=== PATIENT | male | born 1960 | race Asian ===

== ENCOUNTER 2017-04-26 17:35 | Inpatient (IN) | payer OTHER ==
[~2017-04-26] VITALS: Ht 177.8 cm; Wt 69.4 kg
[2017-04-26 17:55] VITALS: BP 160/78
[2017-04-26] MEDS ORDERED: DOCUSATE SODIUM 283 MG/5 ML MINI-ENEMA PR PRN (19:15)
[2017-04-26] MEDS ORDERED: DEXTROSE 50%-WATER 25 GM/50 ML SYRINGE IVP PRN (19:30)
[2017-04-26] MEDS: DOCUSATE SODIUM 100 MG CAPSULE PO SCH (21:00)
[2017-04-26] MEDS: SENNA 187 MG TABLET PO SCH (21:00)
[2017-04-26] MEDS ORDERED: ATORVASTATIN CALCIUM 40 MG TABLET PO SCH (21:00)
[2017-04-26] MEDS ORDERED: INSULIN DETEMIR 100 UNITS/ML SQ SCH (21:00)
[2017-04-26] MEDS: INSULIN ASPART 100 UNITS/ML SQ PRN (22:07)
[2017-04-26 22:17] LABS: GLUCOSE COMMENT 1 Received Meds; GLUCOSE,POINT OF CARE 324 MG/DL (70-110)
[2017-04-26 22:57] LABS: APPEARANCE,URINE CLEAR (CLEAR); GLUCOSE, URINE (UA) 250 mg/dL (NEGATIVE); KETONES,URINE NEGATIVE (NEGATIVE); LEUKOCYTE ESTERASE ,URINE NEGATIVE (NEGATIVE); OCCULT BLOOD,URINE SMALL (NEGATIVE); PROTEIN,URINE SEE CONFIRM (NEGATIVE)
[2017-04-26 23:14] LABS: SULFOSALICYLIC ACID,URINE 3+ (Negative)
[2017-04-26 23:16] LABS: COARSE GRANULAR CASTS,URINE 0-2 /LPF (None Seen)
[2017-04-26 23:17] LABS: HYALINE CASTS, URINE 0-2 /LPF (None Seen)
[2017-04-26 23:19] LABS: SQUAMOUS EPITHELIAL CELL,UR Rare /LPF (None Seen)
[2017-04-27 00:36] VITALS: BP 146/87
[2017-04-27 06:12] LABS: GLUCOSE,POINT OF CARE 342 MG/DL (70-110)
[2017-04-27] MEDS ORDERED: MetFORMIN HCL 500 MG TABLET PO SCH (07:30)
[2017-04-27 07:39] LABS: BASOPHILS % (AUTO) 0.9 % (0.0-2.0); EOSINOPHILS % (AUTO) 3.5 % (1.0-6.0); HEMATOCRIT 36.5 % (41-53); HEMOGLOBIN 11.8 g/dL (13.5-17.5); LYMPHOCYTES # (AUTO) 1.9 K/uL (1.0-4.8); LYMPHOCYTES % (AUTO) 29.3 % (22.0-44.0); MEAN CORPUSCULAR HGB CONC 32.4 G/dL (31.0-37.0); MEAN CORPUSCULAR VOLUME 90 fL (80-100); MONOCYTES # (AUTO) 0.6 K/uL (0.1-1.0); MONOCYTES % (AUTO) 9.2 % (2.0-9.0); NEUTROPHILS # (AUTO) 3.7 K/uL (1.8-7.7); NEUTROPHILS % (AUTO) 57.1 % (40.0-70.0); PLATELET COUNT (AUTO) 243 K/uL (150-450); RED BLOOD CELL COUNT(AUTO) 4.06 MIL/uL (4.50-5.90); RED CELL DISTRIBUTION WIDTH 13.9 % (11.5-14.5); WHITE BLOOD COUNT (AUTO) 6.4 K/uL (4.5-11.0)
[2017-04-27 07:45] VITALS: BP 163/84
[2017-04-27 07:50] LABS: ALBUMIN 1.5 g/dL (3.4-5.0); BILIRUBIN,TOTAL 0.1 mg/dL (0.1-1.0); CALCIUM, TOTAL 7.7 mg/dL (8.8-10.5); CREATININE 1.38 mg/dL (0.60-1.30); POTASSIUM 4.1 mmol/L (3.5-5.1); TOTAL PROTEIN, SERUM 4.6 g/dL (6.4-8.2)
[2017-04-27] MEDS: INSULIN ASPART 100 UNITS/ML SQ PRN ×3 (08:11→21:17)
[2017-04-27] MEDS: MetFORMIN HCL 500 MG TABLET PO SCH ×2 (08:20→17:41)
[2017-04-27] MEDS: DOCUSATE SODIUM 100 MG CAPSULE PO SCH ×2 (08:21→20:57)
[2017-04-27] MEDS: LOSARTAN POTASSIUM 50 MG TABLET PO SCH (08:21)
[2017-04-27] MEDS: ASPIRIN 81 MG CHEWABLE TABLET PO SCH (08:21)
[2017-04-27] MEDS: SitaGLIPtin PHOSPHATE 50 MG TABLET PO SCH ×2 (08:22→20:56)
[2017-04-27] MEDS: CLOPIDOGREL BISULFATE 75 MG TABLET PO SCH (08:22)
[2017-04-27] MEDS: TERAZOSIN HCL 1 MG CAPSULE PO SCH (08:23)
[2017-04-27] MEDS: ACETAMINOPHEN 325 MG TABLET PO PRN (11:02)
[2017-04-27] MEDS ORDERED: CloNIDine HCL 0.1 MG TABLET PO PRN (11:15)
[2017-04-27 12:00] VITALS: BP 125/53
[2017-04-27 13:12] LABS: GLUCOSE,POINT OF CARE 158 MG/DL (70-110)
[2017-04-27 15:06] VITALS: BP 151/77
[2017-04-27 20:50] VITALS: BP 151/72
[2017-04-27] MEDS: SENNA 187 MG TABLET PO SCH (20:56)
[2017-04-27] MEDS: ATORVASTATIN CALCIUM 40 MG TABLET PO SCH (20:57)
[2017-04-27] MEDS: CARVEDILOL 6.25 MG TABLET PO SCH (20:57)
[2017-04-27 20:58] LABS: GLUCOSE COMMENT 1 Received Meds; GLUCOSE,POINT OF CARE 257 MG/DL (70-110)
[2017-04-27] MEDS: HEPARIN SODIUM,PORCINE 5,000 UNITS/ML VIAL SQ SCH (21:00)
[2017-04-27] MEDS: INSULIN DETEMIR 100 UNITS/ML SQ SCH (21:10)
[2017-04-27 21:37] LABS: GLUCOSE COMMENT 1 Received Meds; GLUCOSE,POINT OF CARE 244 MG/DL (70-110)
[2017-04-28 03:00] VITALS: BP 130/66
[2017-04-28 07:16] LABS: GLUCOSE,POINT OF CARE 91 MG/DL (70-110)
[2017-04-28 07:21] LABS: GLUCOSE,POINT OF CARE 137 MG/DL (70-110)
[2017-04-28 07:50] VITALS: BP 142/69
[2017-04-28] MEDS: DOCUSATE SODIUM 100 MG CAPSULE PO SCH (08:23)
[2017-04-28] MEDS: LOSARTAN POTASSIUM 50 MG TABLET PO SCH (08:24)
[2017-04-28] MEDS: CARVEDILOL 6.25 MG TABLET PO SCH ×2 (08:24→21:03)
[2017-04-28] MEDS: ASPIRIN 81 MG CHEWABLE TABLET PO SCH (08:24)
[2017-04-28] MEDS: CLOPIDOGREL BISULFATE 75 MG TABLET PO SCH (08:24)
[2017-04-28] MEDS: SitaGLIPtin PHOSPHATE 50 MG TABLET PO SCH ×2 (08:24→21:03)
[2017-04-28] MEDS: TERAZOSIN HCL 1 MG CAPSULE PO SCH (08:24)
[2017-04-28] MEDS: MetFORMIN HCL 500 MG TABLET PO SCH ×2 (08:24→17:28)
[2017-04-28] MEDS: HEPARIN SODIUM,PORCINE 5,000 UNITS/ML VIAL SQ SCH ×2 (08:25→20:56)
[2017-04-28] MEDS: ACETAMINOPHEN 325 MG TABLET PO PRN (11:02)
[2017-04-28 12:17] LABS: GLUCOSE COMMENT 1 Received Meds; GLUCOSE,POINT OF CARE 198 MG/DL (70-110)
[2017-04-28] MEDS: INSULIN ASPART 100 UNITS/ML SQ PRN ×2 (12:30→20:59)
[2017-04-28] MEDS ORDERED: ATOR40TA28 PO (14:25)
[2017-04-28] MEDS ORDERED: INSNOV SQ (14:25)
[2017-04-28] MEDS ORDERED: ASPI81 PO (14:25)
[2017-04-28] MEDS ORDERED: SITA50 PO (14:25)
[2017-04-28] MEDS ORDERED: LOSA25TA21 PO (14:25)
[2017-04-28] MEDS ORDERED: INSLAN SQ (14:25)
[2017-04-28] MEDS ORDERED: TERA1 PO (14:25)
[2017-04-28 16:10] VITALS: BP 144/79
[2017-04-28 17:57] LABS: GLUCOSE,POINT OF CARE 164 MG/DL (70-110)
[2017-04-28] MEDS: SENNA 187 MG TABLET PO SCH (20:56)
[2017-04-28] MEDS: ATORVASTATIN CALCIUM 40 MG TABLET PO SCH (20:56)
[2017-04-28] MEDS: DOCUSATE SODIUM 250 MG CAPSULE PO SCH (20:56)
[2017-04-28] MEDS: INSULIN DETEMIR 100 UNITS/ML SQ SCH (21:01)
[2017-04-28 21:05] VITALS: BP 139/84
[2017-04-28 21:42] LABS: GLUCOSE,POINT OF CARE 259 MG/DL (70-110)
[2017-04-29] VITALS (7 sets, daily range): BP systolic 134–160; BP diastolic 62–84
[2017-04-29 06:06] LABS: GLUCOSE,POINT OF CARE 82 MG/DL (70-110)
[2017-04-29] MEDS: TERAZOSIN HCL 1 MG CAPSULE PO SCH (08:33)
[2017-04-29] MEDS: CARVEDILOL 6.25 MG TABLET PO SCH ×2 (08:34→20:40)
[2017-04-29] MEDS: LOSARTAN POTASSIUM 50 MG TABLET PO SCH (08:34)
[2017-04-29] MEDS: CLOPIDOGREL BISULFATE 75 MG TABLET PO SCH (08:34)
[2017-04-29] MEDS: DOCUSATE SODIUM 250 MG CAPSULE PO SCH ×2 (08:34→20:40)
[2017-04-29] MEDS: MetFORMIN HCL 500 MG TABLET PO SCH ×2 (08:34→17:35)
[2017-04-29] MEDS: ASPIRIN 81 MG CHEWABLE TABLET PO SCH (08:34)
[2017-04-29] MEDS: SitaGLIPtin PHOSPHATE 50 MG TABLET PO SCH ×2 (08:34→20:40)
[2017-04-29] MEDS: HEPARIN SODIUM,PORCINE 5,000 UNITS/ML VIAL SQ SCH ×2 (08:35→20:40)
[2017-04-29 11:37] LABS: GLUCOSE,POINT OF CARE 128 MG/DL (70-110)
[2017-04-29] MEDS: INSULIN ASPART 100 UNITS/ML SQ PRN ×3 (11:48→20:45)
[2017-04-29] MEDS: SENNA 187 MG TABLET PO SCH (20:40)
[2017-04-29] MEDS: ATORVASTATIN CALCIUM 40 MG TABLET PO SCH (20:40)
[2017-04-29] MEDS: INSULIN DETEMIR 100 UNITS/ML SQ SCH (20:44)
[2017-04-29 21:37] LABS: GLUCOSE COMMENT 1 Received Meds; GLUCOSE,POINT OF CARE 168 MG/DL (70-110)
[2017-04-29 21:37] LABS: GLUCOSE COMMENT 1 Received Meds; GLUCOSE,POINT OF CARE 203 MG/DL (70-110)
[2017-04-30 05:57] LABS: GLUCOSE,POINT OF CARE 73 MG/DL (70-110)
[2017-04-30 07:23] VITALS: BP 149/63
[2017-04-30] MEDS: MetFORMIN HCL 500 MG TABLET PO SCH ×2 (08:04→17:31)
[2017-04-30] MEDS: LOSARTAN POTASSIUM 50 MG TABLET PO SCH (08:05)
[2017-04-30] MEDS: CLOPIDOGREL BISULFATE 75 MG TABLET PO SCH (08:05)
[2017-04-30] MEDS: ASPIRIN 81 MG CHEWABLE TABLET PO SCH (08:05)
[2017-04-30] MEDS: CARVEDILOL 6.25 MG TABLET PO SCH ×2 (08:05→20:55)
[2017-04-30] MEDS: SitaGLIPtin PHOSPHATE 50 MG TABLET PO SCH ×2 (08:05→20:55)
[2017-04-30] MEDS: TERAZOSIN HCL 1 MG CAPSULE PO SCH (08:05)
[2017-04-30] MEDS: HEPARIN SODIUM,PORCINE 5,000 UNITS/ML VIAL SQ SCH ×2 (08:06→20:56)
[2017-04-30] MEDS: DOCUSATE SODIUM 250 MG CAPSULE PO SCH ×2 (08:06→20:55)
[2017-04-30 09:36] VITALS: BP 149/63
[2017-04-30 12:37] LABS: GLUCOSE,POINT OF CARE 123 MG/DL (70-110)
[2017-04-30 15:17] VITALS: BP 104/57
[2017-04-30 15:19] VITALS: BP 104/57
[2017-04-30] MEDS: INSULIN ASPART 100 UNITS/ML SQ PRN ×2 (17:32→20:58)
[2017-04-30 17:41] LABS: GLUCOSE,POINT OF CARE 211 MG/DL (70-110)
[2017-04-30 20:52] VITALS: BP 139/63
[2017-04-30] MEDS: ATORVASTATIN CALCIUM 40 MG TABLET PO SCH (20:55)
[2017-04-30] MEDS: SENNA 187 MG TABLET PO SCH (20:55)
[2017-04-30] MEDS: INSULIN DETEMIR 100 UNITS/ML SQ SCH (20:57)
[2017-04-30 23:06] LABS: GLUCOSE,POINT OF CARE 217 MG/DL (70-110)
[2017-05-01] VITALS (7 sets, daily range): BP systolic 125–153; BP diastolic 60–84
[2017-05-01 05:37] LABS: GLUCOSE,POINT OF CARE 74 MG/DL (70-110)
[2017-05-01] MEDS: ASPIRIN 81 MG CHEWABLE TABLET PO SCH (08:11)
[2017-05-01] MEDS: SitaGLIPtin PHOSPHATE 50 MG TABLET PO SCH ×2 (08:11→20:38)
[2017-05-01] MEDS: CLOPIDOGREL BISULFATE 75 MG TABLET PO SCH (08:11)
[2017-05-01] MEDS: MetFORMIN HCL 500 MG TABLET PO SCH ×2 (08:11→16:18)
[2017-05-01] MEDS: LOSARTAN POTASSIUM 50 MG TABLET PO SCH (08:11)
[2017-05-01] MEDS: TERAZOSIN HCL 1 MG CAPSULE PO SCH (08:11)
[2017-05-01] MEDS: CARVEDILOL 6.25 MG TABLET PO SCH ×2 (08:12→20:38)
[2017-05-01] MEDS: HEPARIN SODIUM,PORCINE 5,000 UNITS/ML VIAL SQ SCH ×2 (08:12→20:39)
[2017-05-01] MEDS: DOCUSATE SODIUM 250 MG CAPSULE PO SCH ×3 (08:12→20:38)
[2017-05-01 11:52] LABS: GLUCOSE COMMENT 1 Received Meds; GLUCOSE,POINT OF CARE 167 MG/DL (70-110)
[2017-05-01] MEDS: INSULIN ASPART 100 UNITS/ML SQ PRN ×3 (12:41→20:44)
[2017-05-01] MEDS: ATORVASTATIN CALCIUM 40 MG TABLET PO SCH (20:38)
[2017-05-01] MEDS: INSULIN DETEMIR 100 UNITS/ML SQ SCH (20:41)
[2017-05-01] MEDS: SENNA 187 MG TABLET PO SCH (21:00)
[2017-05-01 23:02] LABS: GLUCOSE,POINT OF CARE 217 MG/DL (70-110)
[2017-05-01 23:02] LABS: GLUCOSE,POINT OF CARE 278 MG/DL (70-110)
[2017-05-02] VITALS (7 sets, daily range): BP systolic 140–152; BP diastolic 65–78
[2017-05-02 02:52] LABS: GLUCOSE,POINT OF CARE 43 MG/DL (70-110)
[2017-05-02 02:52] LABS: GLUCOSE COMMENT 1 Juice/Food/D50 Given; GLUCOSE,POINT OF CARE 48 MG/DL (70-110)
[2017-05-02 03:07] LABS: GLUCOSE,POINT OF CARE 90 MG/DL (70-110)
[2017-05-02] MEDS ORDERED: 0.9% SODIUM CHLORIDE 10 ML SYRINGE IVP PRN (04:30)
[2017-05-02 05:12] LABS: GLUCOSE,POINT OF CARE 159 MG/DL (70-110)
[2017-05-02] MEDS: MetFORMIN HCL 500 MG TABLET PO SCH ×2 (07:50→16:49)
[2017-05-02] MEDS: ASPIRIN 81 MG CHEWABLE TABLET PO SCH (07:50)
[2017-05-02] MEDS: SitaGLIPtin PHOSPHATE 50 MG TABLET PO SCH ×2 (07:51→20:18)
[2017-05-02] MEDS: CLOPIDOGREL BISULFATE 75 MG TABLET PO SCH (07:51)
[2017-05-02] MEDS: LOSARTAN POTASSIUM 50 MG TABLET PO SCH (07:51)
[2017-05-02] MEDS: CARVEDILOL 6.25 MG TABLET PO SCH ×2 (07:51→20:18)
[2017-05-02] MEDS: HEPARIN SODIUM,PORCINE 5,000 UNITS/ML VIAL SQ SCH ×2 (07:51→20:18)
[2017-05-02] MEDS: TERAZOSIN HCL 1 MG CAPSULE PO SCH (07:51)
[2017-05-02] MEDS: DOCUSATE SODIUM 250 MG CAPSULE PO SCH ×3 (07:57→21:00)
[2017-05-02 12:42] LABS: GLUCOSE,POINT OF CARE 164 MG/DL (70-110)
[2017-05-02] MEDS: INSULIN ASPART 100 UNITS/ML SQ PRN ×3 (13:00→21:32)
[2017-05-02] MEDS: SENNA 187 MG TABLET PO SCH (20:18)
[2017-05-02] MEDS: ATORVASTATIN CALCIUM 40 MG TABLET PO SCH (20:18)
[2017-05-02] MEDS: INSULIN DETEMIR 100 UNITS/ML SQ SCH (20:20)
[2017-05-02] MEDS ORDERED: INSULIN DETEMIR 100 UNITS/ML SQ SCH (21:00)
[2017-05-02 21:22] LABS: GLUCOSE COMMENT 1 Received Meds; GLUCOSE,POINT OF CARE 288 MG/DL (70-110)
[2017-05-02 21:22] LABS: GLUCOSE COMMENT 1 Received Meds; GLUCOSE,POINT OF CARE 170 MG/DL (70-110)
[2017-05-03 00:43] VITALS: BP 138/69
[2017-05-03 06:07] LABS: GLUCOSE,POINT OF CARE 125 MG/DL (70-110)
[2017-05-03 07:45] VITALS: BP 154/85
[2017-05-03] MEDS: MetFORMIN HCL 500 MG TABLET PO SCH ×2 (08:00→17:39)
[2017-05-03] MEDS: ASPIRIN 81 MG CHEWABLE TABLET PO SCH (08:00)
[2017-05-03] MEDS: CARVEDILOL 6.25 MG TABLET PO SCH ×2 (08:00→20:15)
[2017-05-03] MEDS: TERAZOSIN HCL 1 MG CAPSULE PO SCH (08:00)
[2017-05-03] MEDS: HEPARIN SODIUM,PORCINE 5,000 UNITS/ML VIAL SQ SCH ×2 (08:01→20:14)
[2017-05-03] MEDS: CLOPIDOGREL BISULFATE 75 MG TABLET PO SCH (08:01)
[2017-05-03] MEDS: SitaGLIPtin PHOSPHATE 50 MG TABLET PO SCH ×2 (08:01→20:15)
[2017-05-03] MEDS: LOSARTAN POTASSIUM 50 MG TABLET PO SCH (08:02)
[2017-05-03] MEDS: DOCUSATE SODIUM 250 MG CAPSULE PO SCH ×2 (08:11→20:14)
[2017-05-03] MEDS: INSULIN ASPART 100 UNITS/ML SQ PRN ×3 (12:52→20:29)
[2017-05-03 12:57] LABS: GLUCOSE COMMENT 1 Received Meds; GLUCOSE,POINT OF CARE 206 MG/DL (70-110)
[2017-05-03 15:28] VITALS: BP 115/61
[2017-05-03 17:27] LABS: GLUCOSE COMMENT 1 Received Meds; GLUCOSE,POINT OF CARE 161 MG/DL (70-110)
[2017-05-03 20:13] VITALS: BP 134/76
[2017-05-03] MEDS: SENNA 187 MG TABLET PO SCH (20:14)
[2017-05-03] MEDS: ATORVASTATIN CALCIUM 40 MG TABLET PO SCH (20:15)
[2017-05-03] MEDS: INSULIN DETEMIR 100 UNITS/ML SQ SCH (20:28)
[2017-05-03 20:37] LABS: GLUCOSE COMMENT 1 Received Meds; GLUCOSE,POINT OF CARE 240 MG/DL (70-110)
[2017-05-04 00:30] VITALS: BP 129/61
[2017-05-04 06:07] LABS: GLUCOSE,POINT OF CARE 138 MG/DL (70-110)
[2017-05-04 07:23] VITALS: BP 149/72
[2017-05-04] MEDS: CLOPIDOGREL BISULFATE 75 MG TABLET PO SCH (08:28)
[2017-05-04] MEDS: HEPARIN SODIUM,PORCINE 5,000 UNITS/ML VIAL SQ SCH ×2 (08:28→21:13)
[2017-05-04] MEDS: SitaGLIPtin PHOSPHATE 50 MG TABLET PO SCH ×2 (08:28→21:12)
[2017-05-04] MEDS: ASPIRIN 81 MG CHEWABLE TABLET PO SCH (08:29)
[2017-05-04] MEDS: DOCUSATE SODIUM 250 MG CAPSULE PO SCH ×2 (08:29→21:12)
[2017-05-04] MEDS: CARVEDILOL 6.25 MG TABLET PO SCH ×2 (08:29→21:12)
[2017-05-04] MEDS: MetFORMIN HCL 500 MG TABLET PO SCH ×2 (08:29→17:36)
[2017-05-04] MEDS: TERAZOSIN HCL 1 MG CAPSULE PO SCH (08:29)
[2017-05-04] MEDS: LOSARTAN POTASSIUM 50 MG TABLET PO SCH (08:29)
[2017-05-04 11:42] LABS: GLUCOSE COMMENT 1 Received Meds; GLUCOSE,POINT OF CARE 203 MG/DL (70-110)
[2017-05-04] MEDS: INSULIN ASPART 100 UNITS/ML SQ PRN ×3 (12:41→21:17)
[2017-05-04 18:34] VITALS: BP 111/57
[2017-05-04 19:16] LABS: GLUCOSE,POINT OF CARE 311 MG/DL (70-110)
[2017-05-04] MEDS: ATORVASTATIN CALCIUM 40 MG TABLET PO SCH (21:12)
[2017-05-04] MEDS: SENNA 187 MG TABLET PO SCH (21:12)
[2017-05-04] MEDS: INSULIN DETEMIR 100 UNITS/ML SQ SCH (21:15)
[2017-05-04 21:47] LABS: GLUCOSE,POINT OF CARE 163 MG/DL (70-110)
[2017-05-04 23:01] VITALS: BP 144/66
[2017-05-05] VITALS: BP 138/9
[2017-05-05 06:22] LABS: GLUCOSE,POINT OF CARE 126 MG/DL (70-110)
[2017-05-05 07:00] VITALS: BP 154/75
[2017-05-05] MEDS: MetFORMIN HCL 500 MG TABLET PO SCH ×2 (07:56→17:04)
[2017-05-05] MEDS: DOCUSATE SODIUM 250 MG CAPSULE PO SCH ×3 (07:57→20:33)
[2017-05-05] MEDS: ASPIRIN 81 MG CHEWABLE TABLET PO SCH (07:57)
[2017-05-05] MEDS: CLOPIDOGREL BISULFATE 75 MG TABLET PO SCH (07:57)
[2017-05-05] MEDS: TERAZOSIN HCL 1 MG CAPSULE PO SCH (07:57)
[2017-05-05] MEDS: SitaGLIPtin PHOSPHATE 50 MG TABLET PO SCH ×2 (07:57→20:33)
[2017-05-05] MEDS: CARVEDILOL 6.25 MG TABLET PO SCH ×2 (07:57→20:33)
[2017-05-05] MEDS: LOSARTAN POTASSIUM 50 MG TABLET PO SCH (07:57)
[2017-05-05] MEDS: HEPARIN SODIUM,PORCINE 5,000 UNITS/ML VIAL SQ SCH ×2 (07:58→20:33)
[2017-05-05 12:03] LABS: GLUCOSE,POINT OF CARE 142 MG/DL (70-110)
[2017-05-05] MEDS: INSULIN ASPART 100 UNITS/ML SQ PRN ×3 (12:30→21:32)
[2017-05-05 15:36] VITALS: BP 154/76
[2017-05-05 17:42] LABS: GLUCOSE COMMENT 1 Received Meds; GLUCOSE,POINT OF CARE 163 MG/DL (70-110)
[2017-05-05 20:30] VITALS: BP 152/70
[2017-05-05] MEDS: ATORVASTATIN CALCIUM 40 MG TABLET PO SCH (20:32)
[2017-05-05] MEDS: SENNA 187 MG TABLET PO SCH (20:33)
[2017-05-05] MEDS: INSULIN DETEMIR 100 UNITS/ML SQ SCH (21:31)
[2017-05-05 22:47] LABS: GLUCOSE COMMENT 1 Received Meds; GLUCOSE,POINT OF CARE 252 MG/DL (70-110)
[2017-05-06 01:13] VITALS: BP 120/78
[2017-05-06 05:42] LABS: GLUCOSE,POINT OF CARE 108 MG/DL (70-110)
[2017-05-06] MEDS: HEPARIN SODIUM,PORCINE 5,000 UNITS/ML VIAL SQ SCH ×2 (07:48→20:15)
[2017-05-06] MEDS: CLOPIDOGREL BISULFATE 75 MG TABLET PO SCH (07:48)
[2017-05-06] MEDS: MetFORMIN HCL 500 MG TABLET PO SCH ×2 (07:49→17:24)
[2017-05-06] MEDS: DOCUSATE SODIUM 250 MG CAPSULE PO SCH (07:49)
[2017-05-06] MEDS: TERAZOSIN HCL 1 MG CAPSULE PO SCH (07:49)
[2017-05-06] MEDS: ASPIRIN 81 MG CHEWABLE TABLET PO SCH (07:49)
[2017-05-06] MEDS: LOSARTAN POTASSIUM 50 MG TABLET PO SCH (07:53)
[2017-05-06] MEDS: SitaGLIPtin PHOSPHATE 50 MG TABLET PO SCH ×2 (07:53→20:16)
[2017-05-06] MEDS: CARVEDILOL 6.25 MG TABLET PO SCH ×2 (07:53→20:16)
[2017-05-06 08:00] VITALS: BP 145/65
[2017-05-06 12:02] LABS: GLUCOSE COMMENT 1 Received Meds; GLUCOSE,POINT OF CARE 206 MG/DL (70-110)
[2017-05-06] MEDS: INSULIN ASPART 100 UNITS/ML SQ PRN ×3 (12:36→21:42)
[2017-05-06 15:17] VITALS: BP 118/74
[2017-05-06 20:12] VITALS: BP 131/64
[2017-05-06] MEDS: SENNA 187 MG TABLET PO SCH (20:15)
[2017-05-06] MEDS: ATORVASTATIN CALCIUM 40 MG TABLET PO SCH (20:16)
[2017-05-06] MEDS ORDERED: DOCUSATE SODIUM 250 MG CAPSULE PO PRN (21:00)
[2017-05-06] MEDS: INSULIN DETEMIR 100 UNITS/ML SQ SCH (21:40)
[2017-05-06 21:47] LABS: GLUCOSE COMMENT 1 Received Meds; GLUCOSE,POINT OF CARE 141 MG/DL (70-110)
[2017-05-06 21:52] LABS: GLUCOSE COMMENT 1 Received Meds; GLUCOSE,POINT OF CARE 271 MG/DL (70-110)
[2017-05-07] VITALS: BP 121/58
[2017-05-07 05:53] LABS: GLUCOSE,POINT OF CARE 123 MG/DL (70-110)
[2017-05-07 07:47] LABS: BASOPHILS % (AUTO) 1.1 % (0.0-2.0); EOSINOPHILS % (AUTO) 3.2 % (1.0-6.0); HEMATOCRIT 34.7 % (41-53); HEMOGLOBIN 11.9 g/dL (13.5-17.5); LYMPHOCYTES # (AUTO) 2.3 K/uL (1.0-4.8); LYMPHOCYTES % (AUTO) 30.2 % (22.0-44.0); MEAN CORPUSCULAR HEMOGLOBIN 30.4 pg (26.0-34.0); MEAN CORPUSCULAR HGB CONC 34.2 G/dL (31.0-37.0); MEAN CORPUSCULAR VOLUME 89 fL (80-100); MONOCYTES # (AUTO) 0.5 K/uL (0.1-1.0); MONOCYTES % (AUTO) 6.7 % (2.0-9.0); NEUTROPHILS # (AUTO) 4.5 K/uL (1.8-7.7); NEUTROPHILS % (AUTO) 58.8 % (40.0-70.0); PLATELET COUNT (AUTO) 261 K/uL (150-450); RED CELL DISTRIBUTION WIDTH 13.5 % (11.5-14.5); WHITE BLOOD COUNT (AUTO) 7.7 K/uL (4.5-11.0)
[2017-05-07 07:52] VITALS: BP 116/60
[2017-05-07] MEDS: CLOPIDOGREL BISULFATE 75 MG TABLET PO SCH (08:00)
[2017-05-07] MEDS: ASPIRIN 81 MG CHEWABLE TABLET PO SCH (08:00)
[2017-05-07] MEDS: MetFORMIN HCL 500 MG TABLET PO SCH ×2 (08:00→17:16)
[2017-05-07] MEDS: TERAZOSIN HCL 1 MG CAPSULE PO SCH (08:01)
[2017-05-07] MEDS: SitaGLIPtin PHOSPHATE 50 MG TABLET PO SCH ×2 (08:01→20:11)
[2017-05-07] MEDS: HEPARIN SODIUM,PORCINE 5,000 UNITS/ML VIAL SQ SCH ×2 (08:01→20:12)
[2017-05-07] MEDS: CARVEDILOL 6.25 MG TABLET PO SCH ×2 (08:02→20:11)
[2017-05-07] MEDS: LOSARTAN POTASSIUM 50 MG TABLET PO SCH (08:02)
[2017-05-07 08:04] LABS: CALCIUM, TOTAL 7.8 mg/dL (8.8-10.5); CREATININE 1.25 mg/dL (0.60-1.30); POTASSIUM 4.4 mmol/L (3.5-5.1)
[2017-05-07 12:57] LABS: GLUCOSE,POINT OF CARE 167 MG/DL (70-110)
[2017-05-07] MEDS: INSULIN ASPART 100 UNITS/ML SQ PRN ×2 (13:00→21:50)
[2017-05-07 16:00] VITALS: BP 123/61
[2017-05-07] MEDS: ATORVASTATIN CALCIUM 40 MG TABLET PO SCH (20:11)
[2017-05-07] MEDS: SENNA 187 MG TABLET PO SCH (20:11)
[2017-05-07] MEDS: CALCIUM CIT/VITAMIN D3 200 MG-250 UNITS TABLET PO SCH (20:11)
[2017-05-07 20:12] VITALS: BP 139/65
[2017-05-07 20:33] LABS: GLUCOSE COMMENT 1 Received Meds; GLUCOSE,POINT OF CARE 204 MG/DL (70-110)
[2017-05-07] MEDS: INSULIN DETEMIR 100 UNITS/ML SQ SCH (21:45)
[2017-05-07 22:01] LABS: GLUCOSE,POINT OF CARE 196 MG/DL (70-110)
[2017-05-08] VITALS: BP 126/68
[2017-05-08 05:46] LABS: GLUCOSE,POINT OF CARE 107 MG/DL (70-110)
[2017-05-08 07:23] VITALS: BP 122/61
[2017-05-08] MEDS: MetFORMIN HCL 500 MG TABLET PO SCH ×2 (07:45→17:38)
[2017-05-08 08:45] VITALS: BP 151/75
[2017-05-08] MEDS: TERAZOSIN HCL 1 MG CAPSULE PO SCH (08:52)
[2017-05-08] MEDS: LOSARTAN POTASSIUM 50 MG TABLET PO SCH (08:52)
[2017-05-08] MEDS: CARVEDILOL 6.25 MG TABLET PO SCH ×2 (08:52→20:26)
[2017-05-08] MEDS: CALCIUM CIT/VITAMIN D3 200 MG-250 UNITS TABLET PO SCH ×2 (08:52→20:25)
[2017-05-08] MEDS: ASPIRIN 81 MG CHEWABLE TABLET PO SCH (08:52)
[2017-05-08] MEDS: HEPARIN SODIUM,PORCINE 5,000 UNITS/ML VIAL SQ SCH ×2 (08:52→20:25)
[2017-05-08] MEDS: SitaGLIPtin PHOSPHATE 50 MG TABLET PO SCH ×2 (08:52→20:26)
[2017-05-08] MEDS: CLOPIDOGREL BISULFATE 75 MG TABLET PO SCH (08:52)
[2017-05-08 12:12] LABS: GLUCOSE,POINT OF CARE 175 MG/DL (70-110)
[2017-05-08] MEDS: INSULIN ASPART 100 UNITS/ML SQ PRN ×3 (12:42→20:39)
[2017-05-08 15:46] VITALS: BP 134/66
[2017-05-08 17:47] LABS: GLUCOSE,POINT OF CARE 271 MG/DL (70-110)
[2017-05-08] MEDS: ATORVASTATIN CALCIUM 40 MG TABLET PO SCH (20:26)
[2017-05-08] MEDS: SENNA 187 MG TABLET PO SCH (20:27)
[2017-05-08] MEDS: INSULIN DETEMIR 100 UNITS/ML SQ SCH (20:36)
[2017-05-08 21:07] LABS: GLUCOSE,POINT OF CARE 201 MG/DL (70-110)
[2017-05-09 01:30] VITALS: BP 109/62
[2017-05-09 05:46] LABS: GLUCOSE,POINT OF CARE 137 MG/DL (70-110)
[2017-05-09 07:10] VITALS: BP 128/64
[2017-05-09] MEDS: MetFORMIN HCL 500 MG TABLET PO SCH ×2 (08:04→17:35)
[2017-05-09] MEDS: HEPARIN SODIUM,PORCINE 5,000 UNITS/ML VIAL SQ SCH ×2 (08:04→20:11)
[2017-05-09] MEDS: ASPIRIN 81 MG CHEWABLE TABLET PO SCH (08:04)
[2017-05-09] MEDS: CLOPIDOGREL BISULFATE 75 MG TABLET PO SCH (08:04)
[2017-05-09] MEDS: TERAZOSIN HCL 1 MG CAPSULE PO SCH (08:04)
[2017-05-09] MEDS: LOSARTAN POTASSIUM 50 MG TABLET PO SCH (08:05)
[2017-05-09] MEDS: CARVEDILOL 6.25 MG TABLET PO SCH ×2 (08:05→20:10)
[2017-05-09] MEDS: SitaGLIPtin PHOSPHATE 50 MG TABLET PO SCH ×2 (08:05→20:11)
[2017-05-09] MEDS: CALCIUM CIT/VITAMIN D3 200 MG-250 UNITS TABLET PO SCH ×2 (08:05→20:11)
[2017-05-09 12:47] LABS: GLUCOSE COMMENT 1 Received Meds; GLUCOSE,POINT OF CARE 212 MG/DL (70-110)
[2017-05-09] MEDS: INSULIN ASPART 100 UNITS/ML SQ PRN ×3 (12:47→20:20)
[2017-05-09 15:10] VITALS: BP 109/58
[2017-05-09 17:26] LABS: GLUCOSE,POINT OF CARE 230 MG/DL (70-110)
[2017-05-09 20:00] VITALS: BP 94/50
[2017-05-09] MEDS: ATORVASTATIN CALCIUM 40 MG TABLET PO SCH (20:11)
[2017-05-09] MEDS: INSULIN DETEMIR 100 UNITS/ML SQ SCH (20:19)
[2017-05-09] MEDS: SENNA 187 MG TABLET PO SCH (20:22)
[2017-05-09 20:32] LABS: GLUCOSE,POINT OF CARE 286 MG/DL (70-110)
[2017-05-10 04:00] VITALS: BP 129/68
[2017-05-10 05:37] LABS: GLUCOSE,POINT OF CARE 183 MG/DL (70-110)
[2017-05-10] MEDS: MetFORMIN HCL 500 MG TABLET PO SCH ×2 (07:41→17:09)
[2017-05-10] MEDS: INSULIN ASPART 100 UNITS/ML SQ PRN ×4 (07:45→20:52)
[2017-05-10 07:56] VITALS: BP 133/69
[2017-05-10] MEDS: CLOPIDOGREL BISULFATE 75 MG TABLET PO SCH (09:28)
[2017-05-10] MEDS: SitaGLIPtin PHOSPHATE 50 MG TABLET PO SCH ×2 (09:28→20:50)
[2017-05-10] MEDS: LOSARTAN POTASSIUM 50 MG TABLET PO SCH (09:28)
[2017-05-10] MEDS: TERAZOSIN HCL 1 MG CAPSULE PO SCH (09:28)
[2017-05-10] MEDS: CALCIUM CIT/VITAMIN D3 200 MG-250 UNITS TABLET PO SCH ×2 (09:28→20:51)
[2017-05-10] MEDS: HEPARIN SODIUM,PORCINE 5,000 UNITS/ML VIAL SQ SCH ×2 (09:36→20:51)
[2017-05-10] MEDS: CARVEDILOL 6.25 MG TABLET PO SCH ×2 (09:38→20:50)
[2017-05-10] MEDS: ASPIRIN 81 MG CHEWABLE TABLET PO SCH (09:38)
[2017-05-10 15:34] VITALS: BP 131/74
[2017-05-10 17:17] LABS: GLUCOSE COMMENT 1 Received Meds; GLUCOSE,POINT OF CARE 213 MG/DL (70-110)
[2017-05-10 17:17] LABS: GLUCOSE,POINT OF CARE 259 MG/DL (70-110)
[2017-05-10] MEDS: ATORVASTATIN CALCIUM 40 MG TABLET PO SCH (20:50)
[2017-05-10] MEDS: INSULIN DETEMIR 100 UNITS/ML SQ SCH (20:52)
[2017-05-10] MEDS: SENNA 187 MG TABLET PO SCH (21:00)
[2017-05-10 21:06] LABS: GLUCOSE,POINT OF CARE 221 MG/DL (70-110)
[2017-05-11 00:29] VITALS: BP 126/69
[2017-05-11 05:52] LABS: GLUCOSE,POINT OF CARE 117 MG/DL (70-110)
[2017-05-11 07:33] VITALS: BP 129/58
[2017-05-11] MEDS: CALCIUM CIT/VITAMIN D3 200 MG-250 UNITS TABLET PO SCH ×2 (09:15→20:20)
[2017-05-11] MEDS: TERAZOSIN HCL 1 MG CAPSULE PO SCH (09:15)
[2017-05-11] MEDS: CLOPIDOGREL BISULFATE 75 MG TABLET PO SCH (09:15)
[2017-05-11] MEDS: SitaGLIPtin PHOSPHATE 50 MG TABLET PO SCH ×2 (09:15→20:20)
[2017-05-11] MEDS: CARVEDILOL 6.25 MG TABLET PO SCH ×2 (09:15→20:20)
[2017-05-11] MEDS: HEPARIN SODIUM,PORCINE 5,000 UNITS/ML VIAL SQ SCH ×2 (09:15→20:20)
[2017-05-11] MEDS: LOSARTAN POTASSIUM 50 MG TABLET PO SCH (09:16)
[2017-05-11] MEDS: ASPIRIN 81 MG CHEWABLE TABLET PO SCH (09:16)
[2017-05-11] MEDS: MetFORMIN HCL 500 MG TABLET PO SCH ×2 (09:17→16:12)
[2017-05-11 12:18] LABS: GLUCOSE,POINT OF CARE 224 MG/DL (70-110)
[2017-05-11] MEDS: INSULIN ASPART 100 UNITS/ML SQ PRN ×3 (12:23→20:34)
[2017-05-11 15:10] VITALS: BP 147/71
[2017-05-11 20:15] VITALS: BP 110/58
[2017-05-11] MEDS: ATORVASTATIN CALCIUM 40 MG TABLET PO SCH (20:20)
[2017-05-11] MEDS: SENNA 187 MG TABLET PO SCH ×2 (20:20→20:35)
[2017-05-11] MEDS: INSULIN DETEMIR 100 UNITS/ML SQ SCH (20:34)
[2017-05-12 00:40] VITALS: BP 134/64
[2017-05-12 04:17] LABS: GLUCOSE,POINT OF CARE 109 MG/DL (70-110)
[2017-05-12 05:22] LABS: GLUCOSE COMMENT 1 Received Meds; GLUCOSE,POINT OF CARE 258 MG/DL (70-110)
[2017-05-12 05:22] LABS: GLUCOSE COMMENT 1 Received Meds; GLUCOSE,POINT OF CARE 268 MG/DL (70-110)
[2017-05-12 06:22] LABS: GLUCOSE COMMENT 1 Received Meds; GLUCOSE,POINT OF CARE 211 MG/DL (70-110)
[2017-05-12 07:30] VITALS: BP 131/70
[2017-05-12] MEDS: MetFORMIN HCL 500 MG TABLET PO SCH ×2 (08:35→16:49)
[2017-05-12] MEDS: ASPIRIN 81 MG CHEWABLE TABLET PO SCH (08:40)
[2017-05-12] MEDS: LOSARTAN POTASSIUM 50 MG TABLET PO SCH (08:40)
[2017-05-12] MEDS: TERAZOSIN HCL 1 MG CAPSULE PO SCH (08:40)
[2017-05-12] MEDS: CALCIUM CIT/VITAMIN D3 200 MG-250 UNITS TABLET PO SCH ×2 (08:40→21:26)
[2017-05-12] MEDS: SitaGLIPtin PHOSPHATE 50 MG TABLET PO SCH ×2 (08:40→21:26)
[2017-05-12] MEDS: CARVEDILOL 6.25 MG TABLET PO SCH ×2 (08:40→21:26)
[2017-05-12] MEDS: CLOPIDOGREL BISULFATE 75 MG TABLET PO SCH (08:40)
[2017-05-12] MEDS: HEPARIN SODIUM,PORCINE 5,000 UNITS/ML VIAL SQ SCH ×2 (08:44→21:26)
[2017-05-12] MEDS: INSULIN ASPART 100 UNITS/ML SQ PRN ×3 (12:57→21:31)
[2017-05-12 13:26] LABS: GLUCOSE,POINT OF CARE 304 MG/DL (70-110)
[2017-05-12 15:30] VITALS: BP 112/67
[2017-05-12 17:07] LABS: GLUCOSE,POINT OF CARE 153 MG/DL (70-110)
[2017-05-12 20:13] VITALS: BP 118/53
[2017-05-12] MEDS: ATORVASTATIN CALCIUM 40 MG TABLET PO SCH (21:26)
[2017-05-12] MEDS: SENNA 187 MG TABLET PO SCH (21:26)
[2017-05-12] MEDS: INSULIN DETEMIR 100 UNITS/ML SQ SCH (21:30)
[2017-05-12 21:57] LABS: GLUCOSE COMMENT 1 Received Meds; GLUCOSE,POINT OF CARE 322 MG/DL (70-110)
[2017-05-12 23:51] VITALS: BP 130/61
[2017-05-13 06:27] LABS: GLUCOSE,POINT OF CARE 287 MG/DL (70-110)
[2017-05-13 08:30] VITALS: BP 140/65
[2017-05-13] MEDS: CALCIUM CIT/VITAMIN D3 200 MG-250 UNITS TABLET PO SCH ×2 (08:34→20:44)
[2017-05-13] MEDS: CARVEDILOL 6.25 MG TABLET PO SCH ×2 (08:34→20:44)
[2017-05-13] MEDS: CLOPIDOGREL BISULFATE 75 MG TABLET PO SCH (08:34)
[2017-05-13] MEDS: MetFORMIN HCL 500 MG TABLET PO SCH ×2 (08:34→17:16)
[2017-05-13] MEDS: ASPIRIN 81 MG CHEWABLE TABLET PO SCH (08:34)
[2017-05-13] MEDS: TERAZOSIN HCL 1 MG CAPSULE PO SCH (08:34)
[2017-05-13] MEDS: SitaGLIPtin PHOSPHATE 50 MG TABLET PO SCH ×2 (08:34→20:44)
[2017-05-13] MEDS: LOSARTAN POTASSIUM 50 MG TABLET PO SCH (08:35)
[2017-05-13] MEDS: HEPARIN SODIUM,PORCINE 5,000 UNITS/ML VIAL SQ SCH ×2 (08:35→20:45)
[2017-05-13] MEDS: INSULIN ASPART 100 UNITS/ML SQ PRN ×4 (08:36→20:47)
[2017-05-13 12:12] LABS: GLUCOSE COMMENT 1 Received Meds; GLUCOSE,POINT OF CARE 311 MG/DL (70-110)
[2017-05-13 15:03] VITALS: BP 130/65
[2017-05-13 17:18] LABS: GLUCOSE,POINT OF CARE 185 MG/DL (70-110)
[2017-05-13 20:16] VITALS: BP 141/71
[2017-05-13] MEDS: ATORVASTATIN CALCIUM 40 MG TABLET PO SCH (20:44)
[2017-05-13] MEDS: SENNA 187 MG TABLET PO SCH (20:44)
[2017-05-13] MEDS: INSULIN DETEMIR 100 UNITS/ML SQ SCH (20:46)
[2017-05-13 21:22] LABS: GLUCOSE,POINT OF CARE 204 MG/DL (70-110)
[2017-05-14 02:44] VITALS: BP 143/72
[2017-05-14 06:07] LABS: GLUCOSE,POINT OF CARE 129 MG/DL (70-110)
[2017-05-14 07:30] VITALS: BP 141/71
[2017-05-14] MEDS: MetFORMIN HCL 500 MG TABLET PO SCH ×2 (08:26→17:02)
[2017-05-14] MEDS: CLOPIDOGREL BISULFATE 75 MG TABLET PO SCH (08:27)
[2017-05-14] MEDS: TERAZOSIN HCL 1 MG CAPSULE PO SCH (08:27)
[2017-05-14] MEDS: CARVEDILOL 6.25 MG TABLET PO SCH ×2 (08:27→20:29)
[2017-05-14] MEDS: LOSARTAN POTASSIUM 50 MG TABLET PO SCH (08:27)
[2017-05-14] MEDS: ASPIRIN 81 MG CHEWABLE TABLET PO SCH (08:27)
[2017-05-14] MEDS: SitaGLIPtin PHOSPHATE 50 MG TABLET PO SCH ×2 (08:27→20:29)
[2017-05-14] MEDS: HEPARIN SODIUM,PORCINE 5,000 UNITS/ML VIAL SQ SCH ×2 (08:29→20:28)
[2017-05-14] MEDS: INSULIN ASPART 100 UNITS/ML SQ PRN ×3 (12:47→20:44)
[2017-05-14 13:42] LABS: GLUCOSE COMMENT 1 Received Meds; GLUCOSE,POINT OF CARE 206 MG/DL (70-110)
[2017-05-14 15:46] VITALS: BP 131/62
[2017-05-14 17:42] LABS: GLUCOSE COMMENT 1 Received Meds; GLUCOSE,POINT OF CARE 304 MG/DL (70-110)
[2017-05-14 20:23] VITALS: BP 139/65
[2017-05-14] MEDS: SENNA 187 MG TABLET PO SCH (20:28)
[2017-05-14] MEDS: ATORVASTATIN CALCIUM 40 MG TABLET PO SCH (20:29)
[2017-05-14] MEDS: INSULIN DETEMIR 100 UNITS/ML SQ SCH (20:43)
[2017-05-14 23:24] VITALS: BP 102/55
[2017-05-15 05:22] LABS: GLUCOSE COMMENT 1 Post Meal; GLUCOSE,POINT OF CARE 418 MG/DL (70-110)
[2017-05-15 06:03] LABS: GLUCOSE COMMENT 1 Received Meds; GLUCOSE,POINT OF CARE 278 MG/DL (70-110)
[2017-05-15 07:29] VITALS: BP 137/76
[2017-05-15] MEDS: MetFORMIN HCL 500 MG TABLET PO SCH ×2 (08:39→16:12)
[2017-05-15] MEDS: CARVEDILOL 6.25 MG TABLET PO SCH ×2 (08:39→20:41)
[2017-05-15] MEDS: LOSARTAN POTASSIUM 50 MG TABLET PO SCH (08:39)
[2017-05-15] MEDS: CLOPIDOGREL BISULFATE 75 MG TABLET PO SCH (08:39)
[2017-05-15] MEDS: HEPARIN SODIUM,PORCINE 5,000 UNITS/ML VIAL SQ SCH ×2 (08:40→20:41)
[2017-05-15] MEDS: TERAZOSIN HCL 1 MG CAPSULE PO SCH (08:40)
[2017-05-15] MEDS: SitaGLIPtin PHOSPHATE 50 MG TABLET PO SCH ×2 (08:40→20:41)
[2017-05-15] MEDS: ASPIRIN 81 MG CHEWABLE TABLET PO SCH (08:41)
[2017-05-15] MEDS: INSULIN ASPART 100 UNITS/ML SQ PRN ×4 (09:50→20:35)
[2017-05-15 12:07] LABS: GLUCOSE COMMENT 1 Received Meds; GLUCOSE,POINT OF CARE 283 MG/DL (70-110)
[2017-05-15 16:00] VITALS: BP 142/75
[2017-05-15 20:32] LABS: GLUCOSE COMMENT 1 Received Meds; GLUCOSE,POINT OF CARE 244 MG/DL (70-110)
[2017-05-15] MEDS: INSULIN DETEMIR 100 UNITS/ML SQ SCH (20:36)
[2017-05-15] MEDS: SENNA 187 MG TABLET PO SCH ×2 (20:41→20:52)
[2017-05-15] MEDS: ATORVASTATIN CALCIUM 40 MG TABLET PO SCH (20:41)
[2017-05-15 20:42] VITALS: BP 124/73
[2017-05-15 21:07] LABS: GLUCOSE COMMENT 1 Received Meds; GLUCOSE,POINT OF CARE 281 MG/DL (70-110)
[2017-05-16 00:38] VITALS: BP 138/64
[2017-05-16 05:52] LABS: GLUCOSE,POINT OF CARE 163 MG/DL (70-110)
[2017-05-16 07:44] VITALS: BP 134/68
[2017-05-16] MEDS: ASPIRIN 81 MG CHEWABLE TABLET PO SCH (07:54)
[2017-05-16] MEDS: CARVEDILOL 6.25 MG TABLET PO SCH ×2 (07:54→21:00)
[2017-05-16] MEDS: CLOPIDOGREL BISULFATE 75 MG TABLET PO SCH (07:54)
[2017-05-16] MEDS: SitaGLIPtin PHOSPHATE 50 MG TABLET PO SCH ×2 (07:54→20:59)
[2017-05-16] MEDS: LOSARTAN POTASSIUM 50 MG TABLET PO SCH (07:54)
[2017-05-16] MEDS: MetFORMIN HCL 500 MG TABLET PO SCH ×2 (07:54→17:41)
[2017-05-16] MEDS: TERAZOSIN HCL 1 MG CAPSULE PO SCH (07:54)
[2017-05-16] MEDS: HEPARIN SODIUM,PORCINE 5,000 UNITS/ML VIAL SQ SCH ×3 (07:55→21:00)
[2017-05-16] MEDS: INSULIN ASPART 100 UNITS/ML SQ PRN ×4 (07:58→21:03)
[2017-05-16 14:27] LABS: GLUCOSE COMMENT 1 Received Meds; GLUCOSE,POINT OF CARE 234 MG/DL (70-110)
[2017-05-16 15:10] VITALS: BP 133/61
[2017-05-16] MEDS: ATORVASTATIN CALCIUM 40 MG TABLET PO SCH (20:59)
[2017-05-16 21:00] VITALS: BP 126/62
[2017-05-16] MEDS: SENNA 187 MG TABLET PO SCH (21:00)
[2017-05-16] MEDS: INSULIN DETEMIR 100 UNITS/ML SQ SCH (21:02)
[2017-05-17] VITALS: BP 147/82
[2017-05-17 07:53] VITALS: BP 99/55
[2017-05-17 08:45] VITALS: BP 141/65
[2017-05-17] MEDS: MetFORMIN HCL 500 MG TABLET PO SCH ×2 (08:47→18:15)
[2017-05-17] MEDS: SitaGLIPtin PHOSPHATE 50 MG TABLET PO SCH ×2 (08:47→21:27)
[2017-05-17] MEDS: ASPIRIN 81 MG CHEWABLE TABLET PO SCH (08:47)
[2017-05-17] MEDS: CARVEDILOL 6.25 MG TABLET PO SCH ×2 (08:48→21:28)
[2017-05-17] MEDS: HEPARIN SODIUM,PORCINE 5,000 UNITS/ML VIAL SQ SCH ×2 (08:48→21:28)
[2017-05-17] MEDS: LOSARTAN POTASSIUM 50 MG TABLET PO SCH (08:48)
[2017-05-17] MEDS: CLOPIDOGREL BISULFATE 75 MG TABLET PO SCH (08:51)
[2017-05-17] MEDS: INSULIN ASPART 100 UNITS/ML SQ PRN ×4 (08:51→21:34)
[2017-05-17] MEDS: TERAZOSIN HCL 1 MG CAPSULE PO SCH (08:51)
[2017-05-17 10:51] LABS: GLUCOSE COMMENT 1 Received Meds; GLUCOSE,POINT OF CARE 379 MG/DL (70-110)
[2017-05-17 10:55] LABS: GLUCOSE COMMENT 1 Received Meds; GLUCOSE,POINT OF CARE 260 MG/DL (70-110)
[2017-05-17 11:01] LABS: GLUCOSE,POINT OF CARE 173 MG/DL (70-110)
[2017-05-17 11:47] LABS: GLUCOSE COMMENT 1 Received Meds; GLUCOSE,POINT OF CARE 242 MG/DL (70-110)
[2017-05-17 15:03] VITALS: BP 136/57
[2017-05-17 18:37] LABS: GLUCOSE,POINT OF CARE 281 MG/DL (70-110)
[2017-05-17] MEDS: ATORVASTATIN CALCIUM 40 MG TABLET PO SCH (21:27)
[2017-05-17] MEDS: SENNA 187 MG TABLET PO SCH (21:28)
[2017-05-17 21:43] LABS: GLUCOSE,POINT OF CARE 215 MG/DL (70-110)
[2017-05-17] MEDS: INSULIN GLARGINE,HUM.REC.ANLOG 100 UNITS/ML SQ SCH (22:04)
[2017-05-17 22:12] VITALS: BP 145/70
[2017-05-18 00:39] VITALS: BP 138/59
[2017-05-18 05:52] LABS: GLUCOSE,POINT OF CARE 171 MG/DL (70-110)
[2017-05-18 08:00] VITALS: BP 148/63
[2017-05-18] MEDS: MetFORMIN HCL 500 MG TABLET PO SCH ×2 (08:25→17:37)
[2017-05-18] MEDS: HEPARIN SODIUM,PORCINE 5,000 UNITS/ML VIAL SQ SCH ×2 (08:25→20:50)
[2017-05-18] MEDS: CARVEDILOL 6.25 MG TABLET PO SCH ×2 (08:25→20:46)
[2017-05-18] MEDS: SitaGLIPtin PHOSPHATE 50 MG TABLET PO SCH ×2 (08:25→20:46)
[2017-05-18] MEDS: LOSARTAN POTASSIUM 50 MG TABLET PO SCH (08:25)
[2017-05-18] MEDS: CLOPIDOGREL BISULFATE 75 MG TABLET PO SCH (08:25)
[2017-05-18] MEDS: ASPIRIN 81 MG CHEWABLE TABLET PO SCH (08:26)
[2017-05-18] MEDS: TERAZOSIN HCL 1 MG CAPSULE PO SCH (08:26)
[2017-05-18] MEDS: INSULIN ASPART 100 UNITS/ML SQ PRN ×4 (08:32→20:55)
[2017-05-18 12:28] LABS: GLUCOSE COMMENT 1 Received Meds; GLUCOSE,POINT OF CARE 188 MG/DL (70-110)
[2017-05-18 15:16] VITALS: BP 121/57
[2017-05-18 18:17] LABS: GLUCOSE,POINT OF CARE 181 MG/DL (70-110)
[2017-05-18 20:46] VITALS: BP 113/57
[2017-05-18] MEDS: ATORVASTATIN CALCIUM 40 MG TABLET PO SCH (20:46)
[2017-05-18] MEDS: SENNA 187 MG TABLET PO SCH ×3 (20:46→21:00)
[2017-05-18] MEDS: INSULIN GLARGINE,HUM.REC.ANLOG 100 UNITS/ML SQ SCH (20:54)
[2017-05-18 22:13] LABS: GLUCOSE,POINT OF CARE 255 MG/DL (70-110)
[2017-05-19 00:13] VITALS: BP 127/56
[2017-05-19 06:13] LABS: GLUCOSE,POINT OF CARE 177 MG/DL (70-110)
[2017-05-19 07:07] VITALS: BP 141/87
[2017-05-19] MEDS: MetFORMIN HCL 500 MG TABLET PO SCH ×2 (07:09→17:13)
[2017-05-19] MEDS: SitaGLIPtin PHOSPHATE 50 MG TABLET PO SCH ×2 (07:10→20:16)
[2017-05-19] MEDS: LOSARTAN POTASSIUM 50 MG TABLET PO SCH (07:10)
[2017-05-19] MEDS: HEPARIN SODIUM,PORCINE 5,000 UNITS/ML VIAL SQ SCH ×2 (07:10→20:16)
[2017-05-19] MEDS: TERAZOSIN HCL 1 MG CAPSULE PO SCH (07:10)
[2017-05-19] MEDS: CARVEDILOL 6.25 MG TABLET PO SCH ×2 (07:10→20:16)
[2017-05-19] MEDS: CLOPIDOGREL BISULFATE 75 MG TABLET PO SCH (07:11)
[2017-05-19] MEDS: ASPIRIN 81 MG CHEWABLE TABLET PO SCH (07:11)
[2017-05-19] MEDS: INSULIN ASPART 100 UNITS/ML SQ PRN ×4 (07:54→20:26)
[2017-05-19 12:37] LABS: GLUCOSE COMMENT 1 Received Meds; GLUCOSE,POINT OF CARE 277 MG/DL (70-110)
[2017-05-19 15:24] VITALS: BP 99/66
[2017-05-19 16:57] LABS: GLUCOSE COMMENT 1 Received Meds; GLUCOSE,POINT OF CARE 164 MG/DL (70-110)
[2017-05-19] MEDS ORDERED: CARV6 PO (18:59)
[2017-05-19] MEDS ORDERED: METF500T4 PO (18:59)
[2017-05-19] MEDS ORDERED: CLOP75 PO (18:59)
[2017-05-19] MEDS ORDERED: SITA50 PO (19:00)
[2017-05-19 20:15] VITALS: BP 133/65
[2017-05-19] MEDS: ATORVASTATIN CALCIUM 40 MG TABLET PO SCH (20:15)
[2017-05-19] MEDS: SENNA 187 MG TABLET PO SCH (20:24)
[2017-05-19] MEDS: INSULIN GLARGINE,HUM.REC.ANLOG 100 UNITS/ML SQ SCH (20:27)
[2017-05-19 21:36] LABS: GLUCOSE COMMENT 1 Received Meds; GLUCOSE,POINT OF CARE 214 MG/DL (70-110)
[2017-05-20 01:58] VITALS: BP 126/69
[2017-05-20 05:52] LABS: GLUCOSE,POINT OF CARE 168 MG/DL (70-110)
[2017-05-20] MEDS: INSULIN ASPART 100 UNITS/ML SQ PRN ×4 (08:21→20:44)
[2017-05-20] MEDS: MetFORMIN HCL 500 MG TABLET PO SCH ×2 (09:22→17:06)
[2017-05-20] MEDS: LOSARTAN POTASSIUM 50 MG TABLET PO SCH (09:22)
[2017-05-20] MEDS: TERAZOSIN HCL 1 MG CAPSULE PO SCH (09:23)
[2017-05-20] MEDS: CLOPIDOGREL BISULFATE 75 MG TABLET PO SCH (09:23)
[2017-05-20] MEDS: SitaGLIPtin PHOSPHATE 50 MG TABLET PO SCH ×2 (09:23→20:38)
[2017-05-20] MEDS: HEPARIN SODIUM,PORCINE 5,000 UNITS/ML VIAL SQ SCH ×2 (09:23→20:38)
[2017-05-20] MEDS: CARVEDILOL 6.25 MG TABLET PO SCH ×2 (09:23→20:38)
[2017-05-20] MEDS: ASPIRIN 81 MG CHEWABLE TABLET PO SCH (09:23)
[2017-05-20 11:09] VITALS: BP 122/64
[2017-05-20 11:12] LABS: GLUCOSE,POINT OF CARE 146 MG/DL (70-110)
[2017-05-20 16:00] VITALS: BP 134/62
[2017-05-20 20:24] VITALS: BP 148/64
[2017-05-20] MEDS: ATORVASTATIN CALCIUM 40 MG TABLET PO SCH (20:38)
[2017-05-20] MEDS: SENNA 187 MG TABLET PO SCH (20:38)
[2017-05-20] MEDS: INSULIN GLARGINE,HUM.REC.ANLOG 100 UNITS/ML SQ SCH (20:42)
[2017-05-20 23:02] LABS: GLUCOSE COMMENT 1 Received Meds; GLUCOSE,POINT OF CARE 165 MG/DL (70-110)
[2017-05-20 23:02] LABS: GLUCOSE COMMENT 1 Received Meds; GLUCOSE,POINT OF CARE 239 MG/DL (70-110)
[2017-05-21 01:00] VITALS: BP 112/65
[2017-05-21 05:42] LABS: GLUCOSE,POINT OF CARE 159 MG/DL (70-110)
[2017-05-21 07:00] VITALS: BP 134/68
[2017-05-21] MEDS: MetFORMIN HCL 500 MG TABLET PO SCH ×2 (07:06→16:49)
[2017-05-21] MEDS: HEPARIN SODIUM,PORCINE 5,000 UNITS/ML VIAL SQ SCH ×2 (08:15→20:13)
[2017-05-21] MEDS: LOSARTAN POTASSIUM 50 MG TABLET PO SCH (08:15)
[2017-05-21] MEDS: ASPIRIN 81 MG CHEWABLE TABLET PO SCH (08:15)
[2017-05-21] MEDS: CLOPIDOGREL BISULFATE 75 MG TABLET PO SCH (08:15)
[2017-05-21] MEDS: TERAZOSIN HCL 1 MG CAPSULE PO SCH (08:15)
[2017-05-21] MEDS: CARVEDILOL 6.25 MG TABLET PO SCH ×2 (08:15→20:14)
[2017-05-21] MEDS: SitaGLIPtin PHOSPHATE 50 MG TABLET PO SCH ×2 (08:15→20:13)
[2017-05-21] MEDS: INSULIN ASPART 100 UNITS/ML SQ PRN ×4 (08:17→22:24)
[2017-05-21 12:52] LABS: GLUCOSE COMMENT 1 Received Meds; GLUCOSE,POINT OF CARE 188 MG/DL (70-110)
[2017-05-21 15:05] VITALS: BP 114/60
[2017-05-21 17:17] LABS: GLUCOSE COMMENT 1 Received Meds; GLUCOSE,POINT OF CARE 191 MG/DL (70-110)
[2017-05-21] MEDS: ATORVASTATIN CALCIUM 40 MG TABLET PO SCH (20:13)
[2017-05-21] MEDS: SENNA 187 MG TABLET PO SCH (20:14)
[2017-05-21] MEDS: INSULIN GLARGINE,HUM.REC.ANLOG 100 UNITS/ML SQ SCH (22:23)
[2017-05-21 22:42] LABS: GLUCOSE COMMENT 1 Received Meds; GLUCOSE,POINT OF CARE 192 MG/DL (70-110)
[2017-05-22 02:07] VITALS: BP 126/62
[2017-05-22 05:57] LABS: GLUCOSE,POINT OF CARE 175 MG/DL (70-110)
[2017-05-22 07:35] VITALS: BP 108/59
[2017-05-22] MEDS: MetFORMIN HCL 500 MG TABLET PO SCH ×2 (08:18→17:11)
[2017-05-22] MEDS: HEPARIN SODIUM,PORCINE 5,000 UNITS/ML VIAL SQ SCH ×2 (08:19→21:10)
[2017-05-22] MEDS: LOSARTAN POTASSIUM 50 MG TABLET PO SCH (08:19)
[2017-05-22] MEDS: SitaGLIPtin PHOSPHATE 50 MG TABLET PO SCH ×2 (08:19→21:10)
[2017-05-22] MEDS: CLOPIDOGREL BISULFATE 75 MG TABLET PO SCH (08:19)
[2017-05-22] MEDS: CARVEDILOL 6.25 MG TABLET PO SCH ×2 (08:19→21:10)
[2017-05-22] MEDS: TERAZOSIN HCL 1 MG CAPSULE PO SCH (08:19)
[2017-05-22] MEDS: ASPIRIN 81 MG CHEWABLE TABLET PO SCH (08:19)
[2017-05-22] MEDS: INSULIN ASPART 100 UNITS/ML SQ PRN ×3 (08:25→21:17)
[2017-05-22 12:46] LABS: GLUCOSE,POINT OF CARE 140 MG/DL (70-110)
[2017-05-22 15:00] VITALS: BP 101/73
[2017-05-22 18:07] LABS: GLUCOSE COMMENT 1 Received Meds; GLUCOSE,POINT OF CARE 152 MG/DL (70-110)
[2017-05-22] MEDS: SENNA 187 MG TABLET PO SCH (21:00)
[2017-05-22] MEDS: ATORVASTATIN CALCIUM 40 MG TABLET PO SCH (21:10)
[2017-05-22] MEDS: INSULIN GLARGINE,HUM.REC.ANLOG 100 UNITS/ML SQ SCH (21:16)
[2017-05-22 21:38] LABS: GLUCOSE COMMENT 1 Received Meds; GLUCOSE,POINT OF CARE 233 MG/DL (70-110)
[2017-05-22 23:30] VITALS: BP 135/69
[2017-05-23 06:18] LABS: GLUCOSE,POINT OF CARE 145 MG/DL (70-110)
[2017-05-23 07:28] VITALS: BP 116/63
[2017-05-23] MEDS: SitaGLIPtin PHOSPHATE 50 MG TABLET PO SCH ×2 (08:20→21:14)
[2017-05-23] MEDS: CLOPIDOGREL BISULFATE 75 MG TABLET PO SCH (08:20)
[2017-05-23] MEDS: HEPARIN SODIUM,PORCINE 5,000 UNITS/ML VIAL SQ SCH ×2 (08:20→21:15)
[2017-05-23] MEDS: LOSARTAN POTASSIUM 50 MG TABLET PO SCH (08:20)
[2017-05-23] MEDS: CARVEDILOL 6.25 MG TABLET PO SCH ×2 (08:20→21:15)
[2017-05-23] MEDS: ASPIRIN 81 MG CHEWABLE TABLET PO SCH (08:20)
[2017-05-23] MEDS: MetFORMIN HCL 500 MG TABLET PO SCH ×2 (08:20→17:42)
[2017-05-23] MEDS: TERAZOSIN HCL 1 MG CAPSULE PO SCH (08:21)
[2017-05-23] MEDS: INSULIN ASPART 100 UNITS/ML SQ PRN ×4 (08:47→21:28)
[2017-05-23] MEDS ORDERED: SENN-30 PO (11:24)
[2017-05-23 12:27] LABS: GLUCOSE COMMENT 1 Received Meds; GLUCOSE,POINT OF CARE 142 MG/DL (70-110)
[2017-05-23 16:00] VITALS: BP 126/68
[2017-05-23 17:47] LABS: GLUCOSE,POINT OF CARE 179 MG/DL (70-110)
[2017-05-23] MEDS ORDERED: SENNA 187 MG TABLET PO PRN (21:00)
[2017-05-23] MEDS: ATORVASTATIN CALCIUM 40 MG TABLET PO SCH (21:14)
[2017-05-23 21:20] VITALS: BP 131/74
[2017-05-23] MEDS: INSULIN GLARGINE,HUM.REC.ANLOG 100 UNITS/ML SQ SCH (21:29)
[2017-05-23 21:37] LABS: GLUCOSE,POINT OF CARE 201 MG/DL (70-110)
[2017-05-23 23:31] VITALS: BP 133/70
[2017-05-24 06:17] LABS: GLUCOSE,POINT OF CARE 125 MG/DL (70-110)
[2017-05-24 07:35] VITALS: BP_SYST 129; BP_SYST 98; BP_DIAS 62; BP_DIAS 66
[2017-05-24] MEDS: LOSARTAN POTASSIUM 50 MG TABLET PO SCH (08:01)
[2017-05-24] MEDS: TERAZOSIN HCL 1 MG CAPSULE PO SCH (08:01)
[2017-05-24] MEDS: CLOPIDOGREL BISULFATE 75 MG TABLET PO SCH (08:01)
[2017-05-24] MEDS: HEPARIN SODIUM,PORCINE 5,000 UNITS/ML VIAL SQ SCH ×2 (08:01→20:56)
[2017-05-24] MEDS: CARVEDILOL 6.25 MG TABLET PO SCH ×2 (08:01→20:55)
[2017-05-24] MEDS: SitaGLIPtin PHOSPHATE 50 MG TABLET PO SCH ×2 (08:01→20:55)
[2017-05-24] MEDS: MetFORMIN HCL 500 MG TABLET PO SCH ×2 (08:01→17:51)
[2017-05-24] MEDS: ASPIRIN 81 MG CHEWABLE TABLET PO SCH (08:02)
[2017-05-24 11:47] LABS: GLUCOSE,POINT OF CARE 170 MG/DL (70-110)
[2017-05-24] MEDS: INSULIN ASPART 100 UNITS/ML SQ PRN ×3 (12:55→20:57)
[2017-05-24 15:00] VITALS: BP 141/74
[2017-05-24 17:33] LABS: GLUCOSE COMMENT 1 Received Meds; GLUCOSE,POINT OF CARE 186 MG/DL (70-110)
[2017-05-24 20:30] VITALS: BP 142/62
[2017-05-24] MEDS: ATORVASTATIN CALCIUM 40 MG TABLET PO SCH (20:56)
[2017-05-24] MEDS: INSULIN GLARGINE,HUM.REC.ANLOG 100 UNITS/ML SQ SCH (20:58)
[2017-05-24 21:41] LABS: GLUCOSE,POINT OF CARE 171 MG/DL (70-110)
[2017-05-25 05:00] VITALS: BP 125/58
[2017-05-25 05:51] LABS: GLUCOSE,POINT OF CARE 98 MG/DL (70-110)
[2017-05-25 07:00] VITALS: BP 98/58
[2017-05-25] MEDS: MetFORMIN HCL 500 MG TABLET PO SCH (07:26)
[2017-05-25 08:00] VITALS: BP 119/84
[2017-05-25] MEDS: CARVEDILOL 6.25 MG TABLET PO SCH (08:01)
[2017-05-25] MEDS: LOSARTAN POTASSIUM 50 MG TABLET PO SCH (08:01)
[2017-05-25] MEDS: SitaGLIPtin PHOSPHATE 50 MG TABLET PO SCH (08:01)
[2017-05-25] MEDS: CLOPIDOGREL BISULFATE 75 MG TABLET PO SCH (08:02)
[2017-05-25] MEDS: TERAZOSIN HCL 1 MG CAPSULE PO SCH (08:02)
[2017-05-25] MEDS: HEPARIN SODIUM,PORCINE 5,000 UNITS/ML VIAL SQ SCH (08:02)
[2017-05-25] MEDS: ASPIRIN 81 MG CHEWABLE TABLET PO SCH (08:03)
[2017-05-26 07:02] LABS: GLUCOSE COMMENT 1 Received Meds; GLUCOSE,POINT OF CARE 161 MG/DL (70-110)
== END 2017-05-25 12:00 | disposition home health service (06) | DRG 56 ==
LOC: 2WR 17:35
PROVIDERS: ADMIT Physical Medicine & Rehabilitation; ATTEND Physical Medicine & Rehabilitation
DX: G81.94 Hemiplegia, unspecified affecting left nondominant side (principal); I63.9 Cerebral infarction, unspecified; E46 Unspecified protein-calorie malnutrition; I82.612 Acute embolism and thrombosis of superficial veins of left upper extremity; E11.65 Type 2 diabetes mellitus with hyperglycemia; I12.9 Hypertensive chronic kidney disease with stage 1 through stage 4 chronic kidney disease, or unspecified chronic kidney disease; E78.5 Hyperlipidemia, unspecified; N40.0 Benign prostatic hyperplasia without lower urinary tract symptoms; N18.2 Chronic kidney disease, stage 2 (mild); E11.22 Type 2 diabetes mellitus with diabetic chronic kidney disease; F17.210 Nicotine dependence, cigarettes, uncomplicated; R29.810 Facial weakness; J44.9 Chronic obstructive pulmonary disease, unspecified; F43.21 Adjustment disorder with depressed mood; D64.9 Anemia, unspecified; E11.649 Type 2 diabetes mellitus with hypoglycemia without coma; K59.00 Constipation, unspecified; Z71.6 Tobacco abuse counseling; Z79.4 Long term (current) use of insulin; Z88.8 Allergy status to other drugs, medicaments and biological substances; Z79.899 Other long term (current) drug therapy; Z79.02 Long term (current) use of antithrombotics/antiplatelets; Z79.82 Long term (current) use of aspirin; Z79.84 Long term (current) use of oral hypoglycemic drugs; Z91.19 Patient's noncompliance with other medical treatment and regimen; Z68.22 Body mass index [BMI] 22.0-22.9, adult; Z86.718 Personal history of other venous thrombosis and embolism; Z83.2 Family history of diseases of the blood and blood-forming organs and certain disorders involving the immune mechanism; Z80.0 Family history of malignant neoplasm of digestive organs
CPT/HCPCS: 72170; 82947; 82962; 87081; 92507; 92508; 92523; 93971; 97032; 97110; 97112; 97116; 97150; 97163; 97166; 97530; 97535; 99366; J1644; J1815

== ENCOUNTER 2023-05-10 22:15 | Inpatient (IN) | payer OTHER ==
[~2023-05-10] VITALS: Ht 175.3 cm; Wt 73.0 kg
[~2023-05-10 22:15] MED LIST: ASPI-1450 PO; ATOR40TA28 PO; CARV6 PO; CLOP75TA60 PO; INSLAN SQ; INSNOV SQ; LOSA-381 PO; METF-1211 PO; SENN-277 PO; SITA50 PO; TERA1CAP53 PO
[2023-05-10] MEDS ORDERED: MethylPREDNISolone SOD SUCC 125 MG/2 ML VIAL IVP ONE (22:30)
[2023-05-10] MEDS ORDERED: ALBUTEROL SULFATE 2.5 MG/0.5 ML 5 ML NEB SOLUTION NEB ONE (22:30)
[2023-05-10] MEDS ORDERED: IPRATROPIUM BROMIDE 0.5 MG/2.5 ML NEB SOLUTION NEB ONE (22:30)
[2023-05-10] MEDS ORDERED: FUROSEMIDE 40 MG/4 ML VIAL IVP ONE (22:45)
[2023-05-10 22:51] LABS: GLUCOMETER DEV NAME(LOC) ER.6; GLUCOSE,POINT OF CARE 326 MG/DL (70-110)
[2023-05-10 22:53] LABS: COVID AG,FIA SOURCE NASAL SWAB
[2023-05-10 22:55] LABS: BASOPHILS % (AUTO) 0.4 % (0.0-2.0); EOSINOPHILS % (AUTO) 0 % (1.0-6.0); HEMATOCRIT 27.9 % (41-53); LYMPHOCYTES # (AUTO) 0.8 K/uL (1.0-4.8); LYMPHOCYTES % (AUTO) 13.8 % (22.0-44.0); MEAN CORPUSCULAR HGB CONC 32.2 G/dL (31.0-37.0); MEAN CORPUSCULAR VOLUME 87 fL (80-100); MONOCYTES # (AUTO) 0.4 K/uL (0.1-1.0); MONOCYTES % (AUTO) 6.7 % (2.0-9.0); NEUTROPHILS # (AUTO) 4.7 K/uL (1.8-7.7); NEUTROPHILS % (AUTO) 79.1 % (40.0-70.0); PLATELET COUNT (AUTO) 335 K/uL (150-450); RED BLOOD CELL COUNT(AUTO) 3.21 MIL/uL (4.50-5.90); RED CELL DISTRIBUTION WIDTH 14.4 % (11.5-14.5)
[2023-05-10 23:00] LABS: CALCIUM, TOTAL 6.6 mg/dL (8.8-10.5); CREATININE 7.03 mg/dL (0.60-1.30); POTASSIUM 5.4 mmol/L (3.5-5.1)
[2023-05-10] MEDS ORDERED: LORazepam 2 MG/ML VIAL ONE (23:07)
[2023-05-10] MEDS ORDERED: LORazepam 2 MG/ML VIAL IVP ONE (23:15)
[2023-05-10 23:16] VITALS: PULSE 98; RESP 24; O2SAT 99
[2023-05-10 23:24] LABS: ALBUMIN 1.5 g/dL (3.4-5.0); BILIRUBIN,TOTAL 0.2 mg/dL (0.1-1.0); D-DIMER 3.88 mg/L FEU (0.00-0.50); PROTHROMBIN TIME 10.3 SEC (9.4-11.6); TOTAL PROTEIN, SERUM 7.3 g/dL (6.4-8.2)
[2023-05-11] VITALS (9 sets, daily range): BP systolic 140–155; BP diastolic 76–85; PULSE 82–102; RESP 16–24; TEMP 98.2–98.6; O2SAT 99–100
[2023-05-11 00:06] LABS: INFLUENZA TYPE A NEGATIVE FOR TYPE A (NEGATIVE); INFLUENZA TYPE B NEGATIVE FOR TYPE B (NEGATIVE)
[2023-05-11 00:54] LABS: SITE, BLOOD GAS LFT RADIAL; SOURCE, BLOOD GAS ARTERIAL; TEMPERATURE, FAHRENHEIT, BG 98.5 FAHREN (96.0-98.6)
[2023-05-11 00:56] LABS: ABG HCO3 67.6 mmol/L (22.0-26.0); ABG PCO2 38 mmHg (35-45); ABG PH 7.299 (7.35-7.450); PO2, ARTERIAL BG 101.3 mmHg (79.0-87.0)
[2023-05-11 00:57] LABS: ABG BASE EXCESS -8.1 mmol/L (-2.0-3.0); ABG TOTAL HEMOGLOBIN 8.4 G/dL (12.0-18.0)
[2023-05-11 00:58] LABS: ABG A-A DIFF O2 67.6 mmHg (10-20.0); ABG CARBOXYHEMOGLOBIN 0.3 % (0.0-1.5); ABG METHEMOGLOBIN 0.2 % (0.0-1.5); ABG OXYGEN CONTENT 11.5 mL/dL (15.0-23.0); ABG OXYGEN SATURATION 96.4 % (95.0-98.0); ABG OXYHEMOGLOBIN 95.9 % (94.0-100.0); O2 DEVICE,BLOOD GAS BIPAP (ROOM AIR)
[2023-05-11 00:59] LABS: SPONTANEOUS VT, BG 597 ml
[2023-05-11] MEDS ORDERED: FUROSEMIDE 40 MG/4 ML VIAL IVP ONE (02:00)
[2023-05-11] MEDS ORDERED: ASPIRIN 81 MG CHEWABLE TABLET PO ONE (03:00)
[2023-05-11] MEDS ORDERED: NITROGLYCERIN 2% (1 GM=INCH) OINTMENT PACKET TP ONE (03:00)
[2023-05-11 04:06] LABS: APPEARANCE,URINE CLEAR (CLEAR); BILIRUBIN,URINE NEGATIVE (NEGATIVE); GLUCOSE, URINE (UA) >=1000 mg/dL (NEGATIVE); KETONES,URINE NEGATIVE (NEGATIVE); LEUKOCYTE ESTERASE ,URINE NEGATIVE (NEGATIVE); NITRATE,URINE NEGATIVE (NEGATIVE); OCCULT BLOOD,URINE MODERATE (NEGATIVE); PH,URINE 5.5 (5.0-8.0); PROTEIN,URINE 300-600,SEE CONFIRM mg/dL (NEGATIVE); UROBILINOGEN,URINE <=1.0 mg/dL (<=1.0)
[2023-05-11 04:21] LABS: SULFOSALICYLIC ACID,URINE 4+ (Negative)
[2023-05-11 04:23] LABS: BACTERIA,URINE None Seen /HPF (None Seen)
[2023-05-11] MEDS ORDERED: 0.9% SODIUM CHLORIDE 10 ML SYRINGE IVP PRN (05:45)
[2023-05-11] MEDS ORDERED: ACETAMINOPHEN 325 MG TABLET PO PRN (05:45)
[2023-05-11] MEDS ORDERED: ONDANSETRON HCL 4 MG/2 ML VIAL IVP PRN ×2 (05:45→10:00)
[2023-05-11] MEDS ORDERED: DEXTROSE 50%-WATER 25 GM/50 ML SYRINGE IVP PRN (10:00)
[2023-05-11] MEDS ORDERED: BISACODYL 10 MG RECTAL RECTAL SUPPOSITORY PR PRN (10:00)
[2023-05-11] MEDS ORDERED: SODI5POW3 PO (10:33)
[2023-05-11] MEDS ORDERED: NIFE10CA50 PO (10:33)
[2023-05-11] MEDS ORDERED: NIFE-129 PO (10:33)
[2023-05-11] MEDS ORDERED: GABA-1216 PO (10:33)
[2023-05-11 12:29] LABS: LACTIC ACID 0.8 mmol/L (0.4-2.0)
[2023-05-11] MEDS: INSULIN LISPRO 100 UNITS/ML SQ PRN ×3 (12:46→20:05)
[2023-05-11] MEDS ORDERED: SODIUM CHLORIDE 0.9% 250 ML IV ONE (12:54)
[2023-05-11] MEDS: SODIUM CHLORIDE 0.9% 1,000 ML IV SCH (12:57)
[2023-05-11] MEDS: DOXYCYCLINE HYCLATE 100 MG in DEXTROSE 5%-WATER 100 ML IV SCH ×2 (12:57→23:59)
[2023-05-11] MEDS: ACETAMINOPHEN 325 MG TABLET PO PRN (13:31)
[2023-05-11 13:36] LABS: GLUCOSE,POINT OF CARE 375 MG/DL (70-110)
[2023-05-11] MEDS: CefTRIAXone 1 GM/DEXTROSE 50 ML IV SCH (14:14)
[2023-05-11] MEDS ORDERED: CloNIDine HCL 0.1 MG TABLET PO PRN (14:45)
[2023-05-11] MEDS: INSULIN GLARGINE,HUM.REC.ANLOG 100 UNITS/ML SQ SCH (15:00)
[2023-05-11] MEDS: AmLODIPine BESYLATE 5 MG TABLET PO SCH (15:00)
[2023-05-11] MEDS: HEPARIN SODIUM,PORCINE 5,000 UNITS/ML VIAL SQ SCH (16:49)
[2023-05-11] MEDS: DOCUSATE SODIUM 100 MG CAPSULE PO SCH (20:04)
[2023-05-11 20:06] LABS: GLUCOSE,POINT OF CARE 366 MG/DL (70-110)
[2023-05-11 21:13] LABS: APPEARANCE,URINE HAZY (CLEAR); BILIRUBIN,URINE NEGATIVE (NEGATIVE); GLUCOSE, URINE (UA) >=1000 mg/dL (NEGATIVE); KETONES,URINE NEGATIVE (NEGATIVE); LEUKOCYTE ESTERASE ,URINE NEGATIVE (NEGATIVE); NITRATE,URINE NEGATIVE (NEGATIVE); OCCULT BLOOD,URINE LARGE (NEGATIVE); PH,URINE 5.5 (5.0-8.0); PROTEIN,URINE 300-600,SEE CONFIRM mg/dL (NEGATIVE); SPECIFIC GRAVITIY, URINE 1.013 (1.003-1.030); UROBILINOGEN,URINE <=1.0 mg/dL (<=1.0)
[2023-05-11 21:20] LABS: CREATININE,URINE RANDOM 93.1 mg/dL (30.0-125.0)
[2023-05-11 21:22] LABS: CREATININE 7.09 mg/dL (0.60-1.30); POTASSIUM 5.5 mmol/L (3.5-5.1)
[2023-05-11 21:23] LABS: CALCIUM, TOTAL 6.6 mg/dL (8.8-10.5); MAGNESIUM 1.9 mg/dL (1.80-2.40); PHOSPHORUS 7.5 mg/dL (2.5-4.9)
[2023-05-11 21:55] LABS: RBC,URINE 26-50 /HPF (0-2)
[2023-05-11 21:56] LABS: BACTERIA,URINE Rare /HPF (None Seen)
[2023-05-11 23:11] LABS: GLUCOSE,POINT OF CARE 320 MG/DL (70-110)
[2023-05-12] VITALS: BP 142/79; PULSE 83; RESP 24; TEMP 98.4
[2023-05-12] MEDS: HEPARIN SODIUM,PORCINE 5,000 UNITS/ML VIAL SQ SCH ×4 (00:02→23:04)
[2023-05-12] MEDS: SODIUM CHLORIDE 0.9% 1,000 ML IV SCH (01:59)
[2023-05-12 04:00] VITALS: BP 110/51; PULSE 83; RESP 19; TEMP 98.4
[2023-05-12 05:12] LABS: BASOPHILS % (AUTO) 0.4 % (0.0-2.0); EOSINOPHILS % (AUTO) 0 % (1.0-6.0); HEMATOCRIT 22.7 % (41-53); HEMOGLOBIN 7.4 g/dL (13.5-17.5); LYMPHOCYTES # (AUTO) 0.9 K/uL (1.0-4.8); LYMPHOCYTES % (AUTO) 10.2 % (22.0-44.0); MEAN CORPUSCULAR HEMOGLOBIN 28.4 pg (26.0-34.0); MEAN CORPUSCULAR HGB CONC 32.8 G/dL (31.0-37.0); MEAN CORPUSCULAR VOLUME 87 fL (80-100); MONOCYTES # (AUTO) 0.7 K/uL (0.1-1.0); MONOCYTES % (AUTO) 7.5 % (2.0-9.0); NEUTROPHILS # (AUTO) 7.2 K/uL (1.8-7.7); NEUTROPHILS % (AUTO) 81.9 % (40.0-70.0); PLATELET COUNT (AUTO) 291 K/uL (150-450); RED BLOOD CELL COUNT(AUTO) 2.62 MIL/uL (4.50-5.90); RED CELL DISTRIBUTION WIDTH 14.3 % (11.5-14.5)
[2023-05-12 05:21] LABS: GLUCOSE,POINT OF CARE 120 MG/DL (70-110)
[2023-05-12 05:49] LABS: CALCIUM, TOTAL 6.6 mg/dL (8.8-10.5); CREATININE 7.24 mg/dL (0.60-1.30)
[2023-05-12 06:05] LABS: % IRON SATURATION 42.1 % (30-44)
[2023-05-12 08:00] VITALS: BP 157/84; PULSE 85; RESP 17; TEMP 98.7
[2023-05-12] MEDS: DOCUSATE SODIUM 100 MG CAPSULE PO SCH ×2 (08:49→20:23)
[2023-05-12] MEDS: PANTOPRAZOLE SODIUM 40 MG DR TABLET PO SCH (08:55)
[2023-05-12] MEDS: AmLODIPine BESYLATE 5 MG TABLET PO SCH (08:56)
[2023-05-12] MEDS: INSULIN GLARGINE,HUM.REC.ANLOG 100 UNITS/ML SQ SCH (08:58)
[2023-05-12] MEDS: CefTRIAXone 1 GM/DEXTROSE 50 ML IV SCH (10:49)
[2023-05-12] MEDS ORDERED: SODIUM CHLORIDE 0.9% 250 ML IV ONE (10:50)
[2023-05-12 11:21] LABS: GLUCOSE,POINT OF CARE 103 MG/DL (70-110)
[2023-05-12] MEDS: DOXYCYCLINE HYCLATE 100 MG in DEXTROSE 5%-WATER 100 ML IV SCH ×2 (11:37→23:04)
[2023-05-12 12:00] VITALS: BP 164/89; PULSE 85; RESP 16; TEMP 98.1
[2023-05-12] MEDS ORDERED: TADA20TA43 PO (12:13)
[2023-05-12] MEDS ORDERED: BUPR75TA8 PO (12:13)
[2023-05-12] MEDS ORDERED: ASPI-1444 PO (12:13)
[2023-05-12] MEDS ORDERED: DULA3PEN SQ (12:13)
[2023-05-12] MEDS ORDERED: CARV12.530 PO (12:13)
[2023-05-12] MEDS ORDERED: SITA25 PO (12:13)
[2023-05-12] MEDS ORDERED: ERGO500054 PO (12:13)
[2023-05-12] MEDS: ACETAMINOPHEN 325 MG TABLET PO PRN (12:38)
[2023-05-12] MEDS ORDERED: EPOETIN ALFA 10,000 UNITS/ML VIAL SQ SCH (13:00)
[2023-05-12] MEDS: BUMETANIDE 0.25 MG/ML 4 ML VIAL IVP SCH ×2 (13:28→20:22)
[2023-05-12] MEDS: IRON SUCROSE COMPLEX 100 MG in SODIUM CHLORIDE 0.9% 100 ML IV SCH (14:12)
[2023-05-12] MEDS ORDERED: NITROGLYCERIN 0.4 MG SUBLINGUAL TABLET #25 SL PRN (14:15)
[2023-05-12 16:00] VITALS: BP 145/83; PULSE 83; RESP 17; TEMP 98.4
[2023-05-12] MEDS: INSULIN LISPRO 100 UNITS/ML SQ PRN ×2 (17:17→20:24)
[2023-05-12 17:27] LABS: GLUCOSE,POINT OF CARE 117 MG/DL (70-110)
[2023-05-12] MEDS: ASPIRIN 81 MG CHEWABLE TABLET PO SCH (18:56)
[2023-05-12 20:00] VITALS: BP 171/78; PULSE 80; RESP 18; TEMP 97.5
[2023-05-12 20:06] LABS: GLUCOSE,POINT OF CARE 158 MG/DL (70-110)
[2023-05-12] MEDS: METOPROLOL TARTRATE 25 MG TABLET PO SCH (20:23)
[2023-05-12] MEDS: ATORVASTATIN CALCIUM 40 MG TABLET PO SCH (20:23)
[2023-05-12 20:56] LABS: GLUCOSE,POINT OF CARE 172 MG/DL (70-110)
[2023-05-13] VITALS: BP 161/91; PULSE 77; RESP 16; TEMP 98
[2023-05-13] MEDS: ACETAMINOPHEN 325 MG TABLET PO PRN ×2 (01:12→11:10)
[2023-05-13 04:00] VITALS: BP 164/85; PULSE 76; RESP 34; TEMP 98.4
[2023-05-13] MEDS: INSULIN LISPRO 100 UNITS/ML SQ PRN ×4 (05:39→20:15)
[2023-05-13 05:50] LABS: BASOPHILS % (AUTO) 0.5 % (0.0-2.0); EOSINOPHILS % (AUTO) 0 % (1.0-6.0); HEMOGLOBIN 8.4 g/dL (13.5-17.5); LYMPHOCYTES % (AUTO) 12.6 % (22.0-44.0); MEAN CORPUSCULAR HEMOGLOBIN 29.1 pg (26.0-34.0); MEAN CORPUSCULAR HGB CONC 33.4 G/dL (31.0-37.0); MEAN CORPUSCULAR VOLUME 87 fL (80-100); MONOCYTES # (AUTO) 0.7 K/uL (0.1-1.0); NEUTROPHILS % (AUTO) 77.9 % (40.0-70.0); PLATELET COUNT (AUTO) 299 K/uL (150-450); RED BLOOD CELL COUNT(AUTO) 2.87 MIL/uL (4.50-5.90); RED CELL DISTRIBUTION WIDTH 14.6 % (11.5-14.5)
[2023-05-13 05:51] LABS: GLUCOSE,POINT OF CARE 149 MG/DL (70-110)
[2023-05-13 06:03] LABS: CALCIUM, TOTAL 6.9 mg/dL (8.8-10.5); CREATININE 7.12 mg/dL (0.60-1.30); POTASSIUM 5.2 mmol/L (3.5-5.1)
[2023-05-13 06:07] LABS: CHOL/HDL RATIO 2.9 (4.2-7.3)
[2023-05-13] MEDS: ASPIRIN 81 MG CHEWABLE TABLET PO SCH (07:57)
[2023-05-13] MEDS: HEPARIN SODIUM,PORCINE 5,000 UNITS/ML VIAL SQ SCH ×3 (07:57→23:21)
[2023-05-13] MEDS: BUMETANIDE 0.25 MG/ML 4 ML VIAL IVP SCH ×3 (07:57→20:14)
[2023-05-13] MEDS: DOCUSATE SODIUM 100 MG CAPSULE PO SCH ×2 (07:58→21:00)
[2023-05-13] MEDS: PANTOPRAZOLE SODIUM 40 MG DR TABLET PO SCH (07:58)
[2023-05-13] MEDS: METOPROLOL TARTRATE 25 MG TABLET PO SCH (07:58)
[2023-05-13] MEDS: AmLODIPine BESYLATE 10 MG TABLET PO SCH (07:58)
[2023-05-13 08:00] VITALS: BP 149/76; PULSE 75; RESP 16; TEMP 98.4
[2023-05-13] MEDS: INSULIN GLARGINE,HUM.REC.ANLOG 100 UNITS/ML SQ SCH (08:01)
[2023-05-13] MEDS: CLOPIDOGREL BISULFATE 75 MG TABLET PO SCH (09:24)
[2023-05-13] MEDS: DOXYCYCLINE HYCLATE 100 MG in DEXTROSE 5%-WATER 100 ML IV SCH ×2 (10:12→23:21)
[2023-05-13] MEDS: CefTRIAXone 1 GM/DEXTROSE 50 ML IV SCH (11:45)
[2023-05-13 12:00] VITALS: BP 141/76; PULSE 73; RESP 14; TEMP 98
[2023-05-13] MEDS: SODIUM BICARBONATE 650 MG TABLET PO SCH ×2 (14:21→20:14)
[2023-05-13] MEDS: IRON SUCROSE COMPLEX 100 MG in SODIUM CHLORIDE 0.9% 100 ML IV SCH (14:22)
[2023-05-13 16:00] VITALS: BP 141/78; PULSE 73; PULSE 77; RESP 17; TEMP 98.2
[2023-05-13] MEDS: CALCIUM ACETATE 667 MG CAPSULE PO SCH (16:57)
[2023-05-13 18:42] LABS: GLUCOSE,POINT OF CARE 153 MG/DL (70-110)
[2023-05-13] MEDS: MELATONIN 3 MG TABLET PO PRN ×2 (18:48→23:24)
[2023-05-13 20:00] VITALS: BP 139/78; PULSE 79; RESP 18; TEMP 98.4
[2023-05-13 20:01] LABS: GLUCOSE,POINT OF CARE 233 MG/DL (70-110)
[2023-05-13] MEDS: ATORVASTATIN CALCIUM 40 MG TABLET PO SCH (20:14)
[2023-05-14] VITALS: BP 147/76; PULSE 78; RESP 14; TEMP 98.2
[2023-05-14 01:26] LABS: GLUCOSE,POINT OF CARE 240 MG/DL (70-110)
[2023-05-14 04:00] VITALS: BP 159/80; PULSE 80; RESP 14; TEMP 98.4
[2023-05-14] MEDS: INSULIN LISPRO 100 UNITS/ML SQ PRN ×3 (05:25→20:12)
[2023-05-14 05:32] LABS: BASOPHILS % (AUTO) 0.5 % (0.0-2.0); EOSINOPHILS % (AUTO) 0 % (1.0-6.0); HEMATOCRIT 25.7 % (41-53); HEMOGLOBIN 8.7 g/dL (13.5-17.5); LYMPHOCYTES # (AUTO) 1.1 K/uL (1.0-4.8); MEAN CORPUSCULAR HEMOGLOBIN 29.3 pg (26.0-34.0); MEAN CORPUSCULAR HGB CONC 33.9 G/dL (31.0-37.0); MEAN CORPUSCULAR VOLUME 86 fL (80-100); MONOCYTES # (AUTO) 0.9 K/uL (0.1-1.0); MONOCYTES % (AUTO) 11.2 % (2.0-9.0); NEUTROPHILS # (AUTO) 5.7 K/uL (1.8-7.7); NEUTROPHILS % (AUTO) 74.3 % (40.0-70.0); PLATELET COUNT (AUTO) 280 K/uL (150-450); RED BLOOD CELL COUNT(AUTO) 2.98 MIL/uL (4.50-5.90); RED CELL DISTRIBUTION WIDTH 14.4 % (11.5-14.5)
[2023-05-14 05:36] LABS: GLUCOSE,POINT OF CARE 189 MG/DL (70-110)
[2023-05-14 05:42] LABS: CALCIUM, TOTAL 7.2 mg/dL (8.8-10.5); CREATININE 6.84 mg/dL (0.60-1.30); POTASSIUM 4.6 mmol/L (3.5-5.1)
[2023-05-14 08:00] VITALS: BP 134/84; PULSE 77; RESP 16; TEMP 98.7
[2023-05-14] MEDS: CALCIUM ACETATE 667 MG CAPSULE PO SCH ×3 (08:09→17:12)
[2023-05-14] MEDS: DOCUSATE SODIUM 100 MG CAPSULE PO SCH ×2 (08:10→20:13)
[2023-05-14] MEDS: ASPIRIN 81 MG CHEWABLE TABLET PO SCH (08:10)
[2023-05-14] MEDS: METOPROLOL SUCCINATE 25 MG ER TABLET PO SCH (08:10)
[2023-05-14] MEDS: CLOPIDOGREL BISULFATE 75 MG TABLET PO SCH (08:10)
[2023-05-14] MEDS: SODIUM BICARBONATE 650 MG TABLET PO SCH ×2 (08:11→20:11)
[2023-05-14] MEDS: AmLODIPine BESYLATE 10 MG TABLET PO SCH (08:11)
[2023-05-14] MEDS: HEPARIN SODIUM,PORCINE 5,000 UNITS/ML VIAL SQ SCH ×2 (08:11→17:11)
[2023-05-14] MEDS: PANTOPRAZOLE SODIUM 40 MG DR TABLET PO SCH (08:11)
[2023-05-14] MEDS: BUMETANIDE 0.25 MG/ML 4 ML VIAL IVP SCH ×3 (08:12→20:11)
[2023-05-14] MEDS: INSULIN GLARGINE,HUM.REC.ANLOG 100 UNITS/ML SQ SCH (08:14)
[2023-05-14] MEDS: DOXYCYCLINE HYCLATE 100 MG in DEXTROSE 5%-WATER 100 ML IV SCH ×2 (10:32→21:42)
[2023-05-14] MEDS: CefTRIAXone 1 GM/DEXTROSE 50 ML IV SCH (10:32)
[2023-05-14] MEDS: CALCITRIOL 0.25 MCG CAPSULE PO SCH (11:40)
[2023-05-14 12:00] VITALS: BP 123/60; PULSE 92; RESP 14; TEMP 98.2
[2023-05-14] MEDS: IRON SUCROSE COMPLEX 100 MG in SODIUM CHLORIDE 0.9% 100 ML IV SCH (13:54)
[2023-05-14 16:00] VITALS: BP 146/77; PULSE 80; RESP 18; TEMP 98.3
[2023-05-14 16:17] LABS: SPECIMENTYPE,BODY FLUID THORACENTESIS
[2023-05-14 16:57] LABS: APPEARANCE,SPUN,BODY FLUID CLEAR (CLEAR); APPEARANCE,UNSPUN,BODY FLUID HAZY (CLEAR); COLOR,BODY FLUID YELLOW (LT YELLOW); TOTAL VOLUME,BODY FLUID 1650 mL
[2023-05-14 16:59] LABS: BODY FLUID RBC 756.1 /cu. mm.; LYMPHOCYTES,BODY FLUID 89 %; MONOCYTES,BODY FLUID 2 %; NEUTROPHILS,BODY FLUID 4 %; WBC, BODY FLUID 210.56 /cu. mm.
[2023-05-14] MEDS ORDERED: NOREPINEPHRINE 8 MG/D5%-WATER 250 ML IV PRN (18:45)
[2023-05-14] MEDS ORDERED: BENZONATATE 100 MG CAPSULE PO SCH (19:00)
[2023-05-14] MEDS: BENZONATATE 100 MG CAPSULE PO SCH (19:32)
[2023-05-14 20:00] VITALS: BP 147/78; PULSE 79; RESP 19; TEMP 98.4
[2023-05-14] MEDS: ATORVASTATIN CALCIUM 40 MG TABLET PO SCH (20:11)
[2023-05-14] MEDS: MELATONIN 3 MG TABLET PO PRN (22:13)
[2023-05-14 22:36] LABS: GLUCOSE,POINT OF CARE 247 MG/DL (70-110)
[2023-05-14 22:36] LABS: GLUCOSE,POINT OF CARE 281 MG/DL (70-110)
[2023-05-15] VITALS: BP 148/76; PULSE 82; RESP 20; TEMP 98.4
[2023-05-15] MEDS: HEPARIN SODIUM,PORCINE 5,000 UNITS/ML VIAL SQ SCH ×3 (00:29→16:38)
[2023-05-15 04:00] VITALS: BP 145/81; PULSE 77; RESP 15; TEMP 98.2
[2023-05-15] MEDS: INSULIN LISPRO 100 UNITS/ML SQ PRN ×3 (05:23→20:59)
[2023-05-15 05:41] LABS: GLUCOSE,POINT OF CARE 188 MG/DL (70-110)
[2023-05-15 05:41] LABS: BASOPHILS % (AUTO) 0.4 % (0.0-2.0); EOSINOPHILS % (AUTO) 0 % (1.0-6.0); HEMATOCRIT 29.6 % (41-53); HEMOGLOBIN 9.5 g/dL (13.5-17.5); LYMPHOCYTES # (AUTO) 1.7 K/uL (1.0-4.8); LYMPHOCYTES % (AUTO) 12.1 % (22.0-44.0); MEAN CORPUSCULAR HGB CONC 32.2 G/dL (31.0-37.0); MEAN CORPUSCULAR VOLUME 87 fL (80-100); MONOCYTES # (AUTO) 0.9 K/uL (0.1-1.0); MONOCYTES % (AUTO) 6.6 % (2.0-9.0); NEUTROPHILS # (AUTO) 11.4 K/uL (1.8-7.7); NEUTROPHILS % (AUTO) 80.9 % (40.0-70.0); PLATELET COUNT (AUTO) 328 K/uL (150-450); RED BLOOD CELL COUNT(AUTO) 3.41 MIL/uL (4.50-5.90)
[2023-05-15 05:48] LABS: CREATININE 7.23 mg/dL (0.60-1.30); POTASSIUM 4.6 mmol/L (3.5-5.1)
[2023-05-15 05:49] LABS: CALCIUM, TOTAL 7.4 mg/dL (8.8-10.5)
[2023-05-15 08:00] VITALS: BP 155/68; PULSE 74; RESP 13; TEMP 99
[2023-05-15] MEDS: METOPROLOL SUCCINATE 25 MG ER TABLET PO SCH (08:41)
[2023-05-15] MEDS: ASPIRIN 81 MG CHEWABLE TABLET PO SCH (08:41)
[2023-05-15] MEDS: CLOPIDOGREL BISULFATE 75 MG TABLET PO SCH (08:41)
[2023-05-15] MEDS: PANTOPRAZOLE SODIUM 40 MG DR TABLET PO SCH (08:41)
[2023-05-15] MEDS: CALCIUM ACETATE 667 MG CAPSULE PO SCH ×3 (08:42→16:37)
[2023-05-15] MEDS: BENZONATATE 100 MG CAPSULE PO SCH ×3 (08:42→20:57)
[2023-05-15] MEDS: BUMETANIDE 0.25 MG/ML 4 ML VIAL IVP SCH ×3 (08:42→21:44)
[2023-05-15] MEDS: AmLODIPine BESYLATE 10 MG TABLET PO SCH (08:42)
[2023-05-15] MEDS: DOCUSATE SODIUM 100 MG CAPSULE PO SCH ×2 (08:43→21:00)
[2023-05-15] MEDS: SODIUM BICARBONATE 650 MG TABLET PO SCH ×2 (08:43→20:57)
[2023-05-15] MEDS: CALCITRIOL 0.25 MCG CAPSULE PO SCH (08:55)
[2023-05-15] MEDS: INSULIN GLARGINE,HUM.REC.ANLOG 100 UNITS/ML SQ SCH (09:02)
[2023-05-15] MEDS: DOXYCYCLINE HYCLATE 100 MG in DEXTROSE 5%-WATER 100 ML IV SCH ×3 (10:45→22:00)
[2023-05-15] MEDS: CefTRIAXone 1 GM/DEXTROSE 50 ML IV SCH (10:46)
[2023-05-15] MEDS ORDERED: SODIUM CHLORIDE 0.9% 250 ML IV ONE ×2 (10:57→21:43)
[2023-05-15 12:00] VITALS: BP 150/88; PULSE 73; RESP 18; TEMP 98.1
[2023-05-15] MEDS: IRON SUCROSE COMPLEX 100 MG in SODIUM CHLORIDE 0.9% 100 ML IV SCH (15:48)
[2023-05-15 16:00] VITALS: BP 148/78; PULSE 71; RESP 14; TEMP 96
[2023-05-15 16:45] LABS: APPEARANCE,URINE CLEAR (CLEAR); BILIRUBIN,URINE NEGATIVE (NEGATIVE); GLUCOSE, URINE (UA) 150-200 mg/dL (NEGATIVE); KETONES,URINE NEGATIVE (NEGATIVE); LEUKOCYTE ESTERASE ,URINE NEGATIVE (NEGATIVE); NITRATE,URINE NEGATIVE (NEGATIVE); OCCULT BLOOD,URINE LARGE (NEGATIVE); PH,URINE 5.5 (5.0-8.0); PROTEIN,URINE 300-600,SEE CONFIRM mg/dL (NEGATIVE); UROBILINOGEN,URINE <=1.0 mg/dL (<=1.0)
[2023-05-15 18:11] LABS: GLUCOSE,POINT OF CARE 275 MG/DL (70-110)
[2023-05-15 18:18] LABS: SULFOSALICYLIC ACID,URINE 4+ (Negative)
[2023-05-15 18:19] LABS: RBC,URINE 26-50 /HPF (0-2)
[2023-05-15 18:20] LABS: WBC,URINE 0-2 /HPF (0-5)
[2023-05-15 18:21] LABS: BACTERIA,URINE None Seen /HPF (None Seen)
[2023-05-15 20:00] VITALS: BP 132/74; PULSE 80; RESP 16; TEMP 98.2
[2023-05-15 20:51] LABS: GLUCOMETER DEV NAME(LOC) 5S.1B; GLUCOSE,POINT OF CARE 297 MG/DL (70-110)
[2023-05-15] MEDS: MELATONIN 3 MG TABLET PO PRN (20:57)
[2023-05-15] MEDS: ATORVASTATIN CALCIUM 40 MG TABLET PO SCH (20:57)
[2023-05-16] MEDS: HEPARIN SODIUM,PORCINE 5,000 UNITS/ML VIAL SQ SCH ×2 (00:29→08:47)
[2023-05-16 02:10] VITALS: BP 141/80; PULSE 84; RESP 18; TEMP 98.5
[2023-05-16] MEDS: INSULIN LISPRO 100 UNITS/ML SQ PRN ×2 (06:13→12:02)
[2023-05-16 06:40] LABS: BASOPHILS % (AUTO) 0.6 % (0.0-2.0); EOSINOPHILS % (AUTO) 0 % (1.0-6.0); HEMATOCRIT 26.9 % (41-53); LYMPHOCYTES # (AUTO) 1.3 K/uL (1.0-4.8); LYMPHOCYTES % (AUTO) 12.1 % (22.0-44.0); MEAN CORPUSCULAR HEMOGLOBIN 29.3 pg (26.0-34.0); MEAN CORPUSCULAR HGB CONC 33.2 G/dL (31.0-37.0); MEAN CORPUSCULAR VOLUME 88 fL (80-100); MONOCYTES % (AUTO) 9.8 % (2.0-9.0); NEUTROPHILS # (AUTO) 8.3 K/uL (1.8-7.7); NEUTROPHILS % (AUTO) 77.5 % (40.0-70.0); PLATELET COUNT (AUTO) 290 K/uL (150-450); RED BLOOD CELL COUNT(AUTO) 3.06 MIL/uL (4.50-5.90); RED CELL DISTRIBUTION WIDTH 14.6 % (11.5-14.5)
[2023-05-16 06:52] LABS: CALCIUM, TOTAL 7.9 mg/dL (8.8-10.5); CREATININE 6.79 mg/dL (0.60-1.30); POTASSIUM 4.4 mmol/L (3.5-5.1)
[2023-05-16 07:55] VITALS: BP 140/69; PULSE 75; RESP 20; TEMP 97.9
[2023-05-16 08:04] VITALS: BP 153/88; PULSE 80; RESP 19; TEMP 97.9
[2023-05-16 08:06] LABS: GLUCOMETER DEV NAME(LOC) 5S.2C; GLUCOSE,POINT OF CARE 226 MG/DL (70-110)
[2023-05-16] MEDS: METOPROLOL SUCCINATE 25 MG ER TABLET PO SCH (08:45)
[2023-05-16] MEDS: BENZONATATE 100 MG CAPSULE PO SCH (08:45)
[2023-05-16] MEDS: AmLODIPine BESYLATE 10 MG TABLET PO SCH (08:45)
[2023-05-16] MEDS: DOCUSATE SODIUM 100 MG CAPSULE PO SCH (08:46)
[2023-05-16] MEDS: CLOPIDOGREL BISULFATE 75 MG TABLET PO SCH (08:46)
[2023-05-16] MEDS: PANTOPRAZOLE SODIUM 40 MG DR TABLET PO SCH (08:46)
[2023-05-16] MEDS: CALCIUM ACETATE 667 MG CAPSULE PO SCH ×2 (08:46→12:05)
[2023-05-16] MEDS: ASPIRIN 81 MG CHEWABLE TABLET PO SCH (08:47)
[2023-05-16] MEDS: SODIUM BICARBONATE 650 MG TABLET PO SCH (08:52)
[2023-05-16] MEDS: CALCITRIOL 0.25 MCG CAPSULE PO SCH (08:52)
[2023-05-16] MEDS: INSULIN GLARGINE,HUM.REC.ANLOG 100 UNITS/ML SQ SCH (08:57)
[2023-05-16] MEDS ORDERED: BUMETANIDE 1 MG TABLET PO SCH (09:00)
[2023-05-16] MEDS: DOXYCYCLINE HYCLATE 100 MG in DEXTROSE 5%-WATER 100 ML IV SCH (10:00)
[2023-05-16] MEDS ORDERED: METO25XL PO (10:50)
[2023-05-16] MEDS ORDERED: AMLO-258 PO (10:50)
[2023-05-16] MEDS ORDERED: BENZ100C68 PO (10:50)
[2023-05-16] MEDS ORDERED: SODI650T33 PO (10:50)
[2023-05-16] MEDS ORDERED: BUME1TAB6 PO (10:50)
[2023-05-16] MEDS ORDERED: DOXY-354 PO (10:50)
[2023-05-16] MEDS ORDERED: CLOP75TA60 PO (10:50)
[2023-05-16] MEDS ORDERED: CEPH-558 PO (10:50)
[2023-05-16] MEDS ORDERED: ASPI81 PO (10:50)
[2023-05-16] MEDS ORDERED: INSLAN SQ (10:50)
[2023-05-16] MEDS ORDERED: CALC0.2521 PO (10:50)
[2023-05-16] MEDS ORDERED: PHOSLOC PO (10:50)
[2023-05-16 11:08] VITALS: BP 149/77; PULSE 78; RESP 19; TEMP 98.4
[2023-05-16 17:36] LABS: GLUCOMETER DEV NAME(LOC) 5N.2C; GLUCOSE,POINT OF CARE 269 MG/DL (70-110)
== END 2023-05-16 12:30 | disposition home or self-care (01) | DRG 291 ==
LOC: EMS 22:16 → ICUN 05-11 06:08 → ICU 05-11 11:09 → 5S 05-15 19:15
PROVIDERS: ADMIT Hospitalist; ATTEND Hospitalist
PROC: 5A09357 Assistance with Respiratory Ventilation, Less than 24 Consecutive Hours, Continuous Positive Airway Pressure (ICD-10-PCS; principal; 2023-05-11)
PROC: 0W993ZZ Drainage of Right Pleural Cavity, Percutaneous Approach (ICD-10-PCS; 2023-05-14)
DX: I13.2 Hypertensive heart and chronic kidney disease with heart failure and with stage 5 chronic kidney disease, or end stage renal disease (principal); G93.41 Metabolic encephalopathy; J96.01 Acute respiratory failure with hypoxia; I50.23 Acute on chronic systolic (congestive) heart failure; N18.6 End stage renal disease; N17.9 Acute kidney failure, unspecified; E87.20 Acidosis, unspecified; J91.0 Malignant pleural effusion; Z20.822 Contact with and (suspected) exposure to COVID-19; G47.33 Obstructive sleep apnea (adult) (pediatric); R77.8 Other specified abnormalities of plasma proteins; E11.22 Type 2 diabetes mellitus with diabetic chronic kidney disease; D63.1 Anemia in chronic kidney disease; E73.9 Lactose intolerance, unspecified; E11.65 Type 2 diabetes mellitus with hyperglycemia; G47.00 Insomnia, unspecified; E78.00 Pure hypercholesterolemia, unspecified; Z99.81 Dependence on supplemental oxygen; Z79.4 Long term (current) use of insulin; Z88.8 Allergy status to other drugs, medicaments and biological substances; Z79.82 Long term (current) use of aspirin; Z79.02 Long term (current) use of antithrombotics/antiplatelets; Z79.899 Other long term (current) drug therapy; Z87.891 Personal history of nicotine dependence; Z86.73 Personal history of transient ischemic attack (TIA), and cerebral infarction without residual deficits; Z85.118 Personal history of other malignant neoplasm of bronchus and lung
CPT/HCPCS: 32555; 36600; 71045; 71250; 76770; 76942; 80048; 80053; 80061; 81001; 81002; 82043; 82306; 82465; 82550; 82570; 82728; 82805; 82945; 82962; 83540; 83550; 83605; 83615; 83735; 83880; 83970; 83986; 84100; 84145; 84156; 84157; 84300; 84484; 84540; 85025; 85379; 85610; 85730; 87015; 87040; 87075; 87081; 87101; 87205; 87206; 87804; 89051; 93005; 93306; 93970; 94644; 94660; 97166; 97530; 97535; 99291; G0378; J0696; J0885; J1644; J1756; J1815; J1940; J2060; J2930; J3490; J7030; J7050; J7060; Q9967; 36415-L1; 36415-TC; 87070